=== PATIENT | female | born 2000 | race Caucasian/White ===

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

== ENCOUNTER 2022-01-08 01:26 | Observation (INO) ==
[2022-01-08] MEDS ORDERED: ONDANSETRON INJ 2 MG/ML 2 ML VIAL IV STA (01:53)
[2022-01-08] MEDS ORDERED: MoRPHine SULFATE 2 MG/ML CARP IV STA ×2 (01:53→03:35)
[2022-01-08] MEDS ORDERED: SODIUM CHLORIDE 0.9% 500 ML IV ONE (01:53)
--- NOTE | 2022-01-08 01:59 | Emergency Department Note ---
Impression & Plan Left flank pain Admit to the [facility] ED Provider Note NAME: ABELINO TOWNSEND AGE: 21 SEX: F ARRIVES VIA: Walk-In INFORMANT: Patient ED PROVIDER(S): Carolin Marie DO CHIEF COMPLAINT: Left flank pain PLAN: Disposition: Admit to the [facility] Condition: Stable MEDICAL DECISION MAKING: This is a 21-year-old female patient who is 33 weeks who presents to the emergency department with sudden onset of left flank pain at midnight. The patient was noted to have hematuria on urinalysis and went for an ultrasound of the left renal collecting system to rule out an obstructive uropathy. This was not confirmed on ultrasound but her presentation seemed consistent with ureteral colic. She required multiple doses of IV morphine for pain management. I discussed the case with TELEGRAPHIC TYPEWRITER INSTALLER and they recommended admission to the hospital by internal medicine. Dr. Godoy suggested daily NST by TELEGRAPHIC TYPEWRITER INSTALLER. The patient's pain was constant in her left flank and therefore I did not believe that she was having contractions. She had absolutely no anterior abdominal pain. Triage Nursing notes reviewed and agree with them. Additional history obtained from her significant other Vital Signs: reviewed and remarkable for tachycardia Differential diagnosis: Contractions; ureteral colic; obstructive uropathy; pyelonephritis ER treatment provided: Normal saline; IV morphine X2 IV Zofran Diagnostics interpreted by me: Cardiac Monitoring: Normal sinus rhythm at 115 Laboratory studies: See below Imaging studies: As per stat rad Ultrasound renal: Mild right renal hydronephrosis which may be due to maternal hydronephrosis of . No evidence of calculus within the left kidney. Partially visualized fetus. Decompressed urinary bladder Mild splenomegaly with the spleen measuring 13.5 cm. Consultations: Dr. Godoy-TELEGRAPHIC TYPEWRITER INSTALLER HPI: arrives for evaluation of left flank pain. Patient is 33 weeks and describes developing severe left flank pain and nausea around midnight tonight. She tried taking Tylenol with no significant relief. She has had significant vomiting upon arrival here in the emergency department. The patient denies ever having symptoms like this in the past although yesterday she did have some pain in her left side for which she took Tylenol. That pain lasted for a couple of hours. Denies any urinary symptoms or any previous history of kidney stones. ROS: See above HPI for pertinent positives & negatives. A total of 10 systems reviewed and were otherwise negative. PAST MEDICAL HISTORY: at 33 weeks PAST SURGICAL HISTORY:See Below FAMILY HISTORY:See Below SOCIAL HISTORY:See Below HOME MEDICATIONS:See Below ALLERGIES:See Below VITALS:See Below PHYSICAL EXAMINATION: HEENT: Head - normocephalic and atraumatic Pupils are equal, round, and reactive to light. Extraocular eye muscles are intact, and sclera are anicteric. Nose - moist nasal mucosa without discharge. Mouth - moist buccal mucosa. Oropharynx is nonerythematous and there is no tonsillar exudate or edema noted. Neck: Supple; no cervical lymphadenopathy. Heart: Tachycardic rate and rhythm. There is a normal S1 and S2 with no murmurs, clicks, or gallops appreciated. Lungs: Clear to auscultation bilaterally with no wheezes, rales, or rhonchi. Abdomen: Soft, gravid, nontender, no CVA tenderness, with good bowel sounds. There are no palpable pulsatile masses or hepatosplenomegaly. There is no guarding, rigidity, or rebound noted. Extremities: No evidence of cyanosis, clubbing, or edema. There are easily palpable peripheral pulses. Skin: warm and dry with good turgor and no rashes. ED COURSE: Times/Reassessments: 0145: The patient was evaluated in room B 11. A complete history and physical was performed. An IV lock was initiated and labs were drawn as above. A urine specimen was obtained which showed hematuria. The patient was given 2 mg of IV morphine and 4 mg of IV Zofran and a bolus of IV normal saline solution. The patient went for ultrasound of the left collecting system as described above. I discussed the case with Dr. Godoy from TELEGRAPHIC TYPEWRITER INSTALLER and he recommended admission to the hospital with internal medicine and consult with urology and TELEGRAPHIC TYPEWRITER INSTALLER. I discussed the case with the [facility] hospitalist group and relayed his suggestions. Patient had recurrence of her pain and received additional dose of IV morphine. Carolin Marie DO Past Med/Surg History Medical History Acute otitis externa Acute sinusitis Cough Stye Varicella vaccination Viral URI Surgical History H/O tooth extraction and implant History of tonsillectomy Family History Grandmother (Maternal) Ovarian cancer Cervical cancer Denies family history of Prostate cancer Breast cancer Colorectal cancer Social History Smoking Status: Never smoker Second Hand Exposure: No; Hx Alcohol Use: No Hx Substance Use: No Preferred Language: [place] Visual Impairment: No Limitations Hearing Ability: Normal Atmospheric Technician Required: No Beliefs That Will Affect Care: None marital status: Single marital status details: RODOLFO Ramos (33) [phone] Current Living Situation: Other Current Living Situation Comment: Lives with Boyfriend current occupational status: employed 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 Feels Safe at Home: Yes Assistive Devices: None Allergies Allergies Allergy/AdvReac Type Severity Reaction Status Date / Time No Known Allergies Allergy Verified 01/08/22 01:38 Home Meds Home Medications Medication Instructions Recorded Confirmed 1 tab PO DAILY 01/08/22 01/08/22 Previous Rx's Medication Instructions Recorded cephalexin 500 mg capsule 500 mg PO Q6H 6 Days #24 cap 01/08/22 Results & Data (ED) Vital Signs Vital Signs - 24 hr 01/08/22 01:27 01/08/22 01:52 01/08/22 02:58 Temperature 36.6 C Temperature Source Temporal Artery Scan Pulse Rate 200 H Pulse Rate [Right Finger] 115 H 78 Pulse Rhythm Regular Pulse Rhythm [Right Finger] Regular Pulse Strength Strong Pulse Strength [Right Finger] Normal Normal Respiratory Rate 18 18 18 Respiratory Effort / Characteristics Non-Labored Spontaneous Non-Labored Spontaneous Non-Labored Spontaneous Respiratory Depth Normal Normal Normal Respiratory Pattern Regular Blood Pressure 111/76 Blood Pressure [Right Arm] 102/74 Blood Pressure Mean 87 Blood Pressure Mean [Right Arm] 83 Blood Pressure Position Sitting Blood Pressure Position [Right Arm] Lying Pulse Oximetry 98 98 Oxygen Delivery Method Room Air Room Air Sepsis Recent Fever Within 48 Hours No Sepsis New/Unexplained Change in Mental Status No Sepsis Action Taken by Nursing No Action Required 01/08/22 03:28 Temperature Temperature Source Pulse Rate 96 H Pulse Rate [Right Finger] Pulse Rhythm Regular Pulse Rhythm [Right Finger] Pulse Strength Pulse Strength [Right Finger] Respiratory Rate Respiratory Effort / Characteristics Respiratory Depth Respiratory Pattern Blood Pressure Blood Pressure [Right Arm] Blood Pressure Mean Blood Pressure Mean [Right Arm] Blood Pressure Position Blood Pressure Position [Right Arm] Pulse Oximetry 96 Oxygen Delivery Method Room Air Sepsis Recent Fever Within 48 Hours Sepsis New/Unexplained Change in Mental Status Sepsis Action Taken by Nursing Laboratory Data Result diagrams: 01/08/22 01:45 01/08/22 01:45 Lab Results 01/08/22 01/08/22 01/08/22 Range/Units 01:45 01:45 01:45 WBC 8.78 (4.8-10.8) K/uL RBC 3.33 L (4.2-5.4) M/uL Hgb 9.9 L (12.0-16.0) g/dL Hct 29.5 L (37-47) % MCV 88.6 (80-100) fL MCH 29.7 (25-34) pg MCHC 33.6 (32-36) g/dL RDW Std Deviation 44.7 (36.4-46.3) fL RDW Coeff of Rodger 13.8 (11.5-14.5) % Plt Count 157 (130-400) K/uL MPV 9.7 (7.4-10.4) fL Immature Gran % (Auto) 0.3 % Neut % (Auto) 67.1 % Lymph % (Auto) 24.7 % [place] % (Auto) 6.8 % Eos % (Auto) 1.1 % Baso % (Auto) 0.0 % Neut # (Auto) 5.88 (1.4-6.5) K/uL Lymph # (Auto) 2.17 (1.2-3.4) K/uL [place] # (Auto) 0.60 H (0.11-0.59) K/uL Eos # (Auto) 0.10 (0-0.5) K/uL Baso # (Auto) 0.00 (0-0.2) K/uL Immature Gran # (Auto) 0.03 H (0.00-0.02) K/uL Absolute Nucleated RBC 0.00 (0-0) K/uL Nucleated RBC % (auto) 0.0 % RBC Morphology Unremarkable Polychromasia 1+ Sodium 138 (136-145) mmol/L Potassium 3.4 L (3.5-5.1) mmol/L Chloride 105 (98-107) mmol/L Carbon Dioxide 24 (21-32) mmol/L Anion Gap 9 (3-11) BUN 9 (6-23) mg/dl Creatinine 0.63 (0.6-1.2) mg/dl Est Cr Clr Drug Dosing 152.5 ml/min Est GFR ( Amer) 148.6 ml/min Est GFR (Non-Af Amer) 128.2 ml/min BUN/Creatinine Ratio 14.3 (10-20) Glucose 97 (70-99(Fasting)) mg/dl Calcium 8.9 (8.5-10.1) mg/dl Magnesium 1.7 (1.7-2.4) mg/dl Total Bilirubin 0.5 (0.2-1.0) mg/dl AST 15 (13-39) U/L ALT 10 (7-52) U/L Alkaline Phosphatase 86 (34-104) U/L Total Protein 6.6 (6.0-8.3) gm/dl Albumin 3.6 (3.4-5.0) gm/dl Globulin 3.0 (2.5-4.0) gm/dl Albumin/Globulin Ratio 1.2 (0.9-2) Urine Color Urine Appearance (Clear) Urine pH (4.5-7.5) Ur Specific [place] (1.000-1.030) Urine Protein (Negative) Urine Glucose (UA) (Negative) Urine Ketones (Negative) Urine Blood (Negative) Urine Nitrite (Negative) Urine Bilirubin (Negative) Urine Urobilinogen (Negative) Ur Leukocyte Esterase (Negative) Urine WBC (Auto) (0-5) /hpf Urine RBC (Auto) (0-4) /hpf U Hyaline Cast (Auto) (0-5) /lpf U Epithel Cells (Auto) (0-5) /lpf Urine Bacteria (Auto) (Negative) Monoscreen (Negative) SARS-CoV-2, RNA, NAAT (NEGATIVE) 01/08/22 01/08/22 01/08/22 Range/Units 01:45 02:00 03:45 WBC (4.8-10.8) K/uL RBC (4.2-5.4) M/uL Hgb (12.0-16.0) g/dL Hct (37-47) % MCV (80-100) fL MCH (25-34) pg MCHC (32-36) g/dL RDW Std Deviation (36.4-46.3) fL RDW Coeff of Rodger (11.5-14.5) % Plt Count (130-400) K/uL MPV (7.4-10.4) fL Immature Gran % (Auto) % Neut % (Auto) % Lymph % (Auto) % [place] % (Auto) % Eos % (Auto) % Baso % (Auto) % Neut # (Auto) (1.4-6.5) K/uL Lymph # (Auto) (1.2-3.4) K/uL [place] # (Auto) (0.11-0.59) K/uL Eos # (Auto) (0-0.5) K/uL Baso # (Auto) (0-0.2) K/uL Immature Gran # (Auto) (0.00-0.02) K/uL Absolute Nucleated RBC (0-0) K/uL Nucleated RBC % (auto) % RBC Morphology Polychromasia Sodium (136-145) mmol/L Potassium (3.5-5.1) mmol/L Chloride (98-107) mmol/L Carbon Dioxide (21-32) mmol/L Anion Gap (3-11) BUN (6-23) mg/dl Creatinine (0.6-1.2) mg/dl Est Cr Clr Drug Dosing ml/min Est GFR ( Amer) ml/min Est GFR (Non-Af Amer) ml/min BUN/Creatinine Ratio (10-20) Glucose (70-99(Fasting)) mg/dl Calcium (8.5-10.1) mg/dl Magnesium (1.7-2.4) mg/dl Total Bilirubin (0.2-1.0) mg/dl AST (13-39) U/L ALT (7-52) U/L Alkaline Phosphatase (34-104) U/L Total Protein (6.0-8.3) gm/dl Albumin (3.4-5.0) gm/dl Globulin (2.5-4.0) gm/dl Albumin/Globulin Ratio (0.9-2) Urine Color [place] Urine Appearance Cloudy A (Clear) Urine pH 5.5 (4.5-7.5) Ur Specific [place] 1.034 H (1.000-1.030) Urine Protein 1+ H (Negative) Urine Glucose (UA) Negative (Negative) Urine Ketones 1+ H (Negative) Urine Blood 3+ H (Negative) Urine Nitrite Negative (Negative) Urine Bilirubin Negative (Negative) Urine Urobilinogen Negative (Negative) Ur Leukocyte Esterase Trace H (Negative) Urine WBC (Auto) 10-30 H (0-5) /hpf Urine RBC (Auto) >30 H (0-4) /hpf U Hyaline Cast (Auto) 5-10 H (0-5) /lpf U Epithel Cells (Auto) >30 H (0-5) /lpf Urine Bacteria (Auto) 1+ H (Negative) Monoscreen Negative (Negative) SARS-CoV-2, RNA, NAAT NEGATIVE (NEGATIVE) Administered Medications Discontinued Medications Sodium Chloride (Nss) 500 mls @ 999 mls/hr IV .Q31M ONE Stop: 01/08/22 02:23 Last Infusion: 01/08/22 03:32 Dose: 0 mls/hr Documented by: [id number] Admin: 01/08/22 02:13 Dose: 999 mls/hr Documented by: [id number] Ceftriaxone Sodium 2,000 mg/ (Dextrose) 70 mls @ 100 mls/hr IV Q24H SCOTT; Protocol Stop: 01/18/22 06:59 Last Infusion: 01/08/22 08:17 Dose: 0 mls/hr Documented by: [id number] Admin: 01/08/22 07:35 Dose: 100 mls/hr Documented by: [id number] Sodium Chloride (Nss 1000ml) 1,000 mls @ 100 mls/hr IV .Q10H SCOTT Stop: 02/07/22 05:48 Last Admin: 01/08/22 07:08 Dose: 100 mls/hr Documented by: [id number] Morphine Sulfate (Morphine Sulfate 2 Mg/Ml Carp) 2 mg IV NOW STA Stop: 01/08/22 01:54 Last Admin: 01/08/22 02:10 Dose: 2 mg Documented by: [id number] Morphine Sulfate (Morphine Sulfate 2 Mg/Ml Carp) 2 mg IV NOW STA Stop: 01/08/22 03:36 Last Admin: 01/08/22 03:44 Dose: 2 mg Documented by: [id number] Ondansetron HCl (Ondansetron Inj 2 Mg/Ml 2 Ml Vial) 4 mg IV NOW STA Stop: 01/08/22 01:54 Last Admin: 01/08/22 02:09 Dose: 4 mg Documented by: [id number] Potassium Chloride (Potassium Chloride Crtab 20 Meq Tabcr) 40 meq PO NOW STA Stop: 01/08/22 08:40 Last Admin: 01/08/22 08:41 Dose: 40 meq Documented by: [id number] Prenat Multivit/[place]/Iron/Folic Ac ( Vitamin 1 Tab) 1 tab PO DAILY SCOTT Stop: 02/07/22 08:59 Last Admin: 01/08/22 08:38 Dose: 1 tab Documented by: [id number] Discharge Plan Visit Data Chief Complaint: Back Injury/Pain Stated Complaint: BACK PAIN,NAUSEA ED Provider: Carolin Marie Discharge Problem: Left flank pain Patient Disposition: Admitted As Inpatient Discharge Instructions Interventions: ED Discharge Assessment Last Done: 01/08/22 05:28
[2022-01-08 02:10] LABS: Hematocrit (blood only) 29.5 % (37-47); Hemoglobin 9.9 g/dL (12.0-16.0); Mean Corpuscular Hemoglobin 29.7 pg (25-34); Mean Corpuscular Hgb Conc 33.6 g/dL (32-36); Mean Corpuscular Volume 88.6 fL (80-100); Mean Platelet Volume 9.7 fL (7.4-10.4); Platelet Count 157 K/uL (130-400); RDW Coefficient of Variation 13.8 % (11.5-14.5); RDW Standard Deviation 44.7 fL (36.4-46.3); Red Blood Count 3.33 M/uL (4.2-5.4); White Blood Count 8.78 K/uL (4.8-10.8)
[2022-01-08 02:12] LABS: Appearance Urine Cloudy (Clear); Bacteria Urine Automated 1+ (Negative); Bilirubin Urine Negative (Negative); Blood Urine 3+ (Negative); Color Urine Orange; Epithelial Cell Urine Auto >30 /lpf (0-5); Glucose Urine UA Negative (Negative); Ketones Urine 1+ (Negative); Leukocyte Esterase Urine Trace (Negative); Nitrite Urine Negative (Negative); Protein Urine 1+ (Negative); RBC Urine Automated >30 /hpf (0-4); Specific Gravity Urine 1.034 (1.000-1.030); Urobilinogen Urine Negative (Negative); pH Urine 5.5 (4.5-7.5)
[2022-01-08 02:20] LABS: Albumin Globulin Ratio 1.2 (0.9-2); Albumin Level 3.6 gm/dl (3.4-5.0); BUN Creatinine Ratio 14.3 (10-20); Bilirubin,Total 0.5 mg/dl (0.2-1.0); Calcium 8.9 mg/dl (8.5-10.1); Creatinine Clr Calc Pharmacy 152.5 ml/min; Est GFR (African American) 148.6 ml/min; Est GFR (Non-African American) 128.2 ml/min; Potassium 3.4 mmol/L (3.5-5.1); Total Protein 6.6 gm/dl (6.0-8.3)
[2022-01-08 02:33] LABS: Eosinophils % (auto) 1.1 %; Immature Granulocytes # (auto) 0.03 K/uL (0.00-0.02); Immature Granulocytes % (auto) 0.3 %; Lymphocytes # (auto) 2.17 K/uL (1.2-3.4); Lymphocytes % (auto) 24.7 %; Monocytes % (auto) 6.8 %; Neutrophils # (auto) 5.88 K/uL (1.4-6.5); Neutrophils % (auto) 67.1 %; Polychromasia 1+
--- NOTE | 2022-01-08 04:42 | History & Physical Report ---
Date of Service January 08, 2022 Assessment & Plan (1) Left flank pain: (2) Splenomegaly: Plan: Paty Wilks is a 21-year-old at 33 weeks gestation who came to [facility] due to severe left flank pain for 4 hours. Left flank pain - Unclear etiology -- DDx including kidney stone as this cannot be fully ruled out despite negative US, UTI/pyelonephritis, secondary to splenomegaly, positioning - Admit to med tele - Will check monospot due to splenomegaly on US - Will treat empirically for UTI w/ ceftriaxone - PRN analgesia with IV Tylenol or morphine if severe pain - IVF w/ NSS @ 100cc/h - Consult Urology - Consult OB -- provider aware and recommending admission to medicine, does not feel monitoring necessary at this time; planning to get daily NSTs - CBC & CMP in AM Splenomegaly - Mild splenomegaly on Renal US with spleen measuring 13.5 cm - Unclear etiology - Check monospot DVT ppx: SCDs, chemoppx contraindicated Diet: NPO, NSS @ 100 cc/h Dispo: Med tele CODE STATUS: Full History of Present Illness Primary Care Provider: NO PCP Paty Wilks is a 21-year-old at 33 weeks gestation who came to [facility] due to severe left flank pain for 4 hours. She had left flank/low back pain night before last and treated with Tylenol, which resolved it. The tax director yesterday had the same issue but was able to resolve it as well. However, around midnight, she developed severe sudden pain in her left flank. This time was worse than previous so decided to come in. She denies h/o kidney stones or any other abdominal pathology. She currently denies any urinary symptoms including dysuria, frequency, urgency. No fever, chills, n/v, CP, palp, SOB, cough, weakness, numbness, swelling, abd pain, KOHLER, dizziness, rashes. Denies vaginal bleeding, fluid loss. Fetus has remained active. In the ED patient received morphine 2mg IV x2, NSS 1L fluid bolus, zogfran 4mg IV x1. She had Renal US showing mild right renal hydronephrosis, no evidence of calculus within left kidney, mild splenomegaly with spleen measuring 13.5cm per [facility]. Lab work only notable for anemia of 9.9, which seems stable from last check, and mild hypokalemia of 3.4. Urinalysis showed cloudy, orange urine with 1+ protein, 1+ ketones, 3+ blood, trace leuk esterase, 10-30 WBC, >30 RBC, 5-10 hyaline casts, >30 epithelial cells, 1+ bacteria. Patient's pain resolved at this time after above meds. Allergies Allergy/AdvReac Type Severity Reaction Status Date / Time No Known Allergies Allergy Verified 01/08/22 01:38 Home Medications Medication Instructions Recorded Confirmed Type 1 tab PO DAILY 01/08/22 01/08/22 History cephalexin 500 mg capsule 500 mg PO Q6H 6 Days #24 cap 01/08/22 Rx Past Med/Surg History Medical History Acute otitis externa Acute sinusitis Cough Stye Varicella vaccination Viral URI Surgical History H/O tooth extraction and implant History of tonsillectomy Family History Grandmother (Maternal) Ovarian cancer Cervical cancer Denies family history of Prostate cancer Breast cancer Colorectal cancer Social History Smoking Status: Never smoker Second Hand Exposure: No; Hx Alcohol Use: No Hx Substance Use: No Preferred Language: Citizen Of [place] Visual Impairment: No Limitations Hearing Ability: Normal Commercial Loan Manager Required: No Beliefs That Will Affect Care: None marital status: Single marital status details: RODOLFO Ramos (33) [phone] Current Living Situation: Other Current Living Situation Comment: Lives with Boyfriend current occupational status: employed 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 NAD. HEENT: PERRL, EOMI. Moist mucous membranes. NECK: No JVD. No lymphadenopathy. CHEST/LUNGS: CTAB A/P. No crackles, wheezes, rales, rhonchi. HEART: RRR. No m/g/r. No carotid bruits. ABDOMEN: NT/ND, soft. BS+ x4. Gravid. No CVA tenderness. EXTREMITIES: No cyanosis, no clubbing, no edema SKIN: Warm and dry. No rashes or lesions. PSYCHIATRIC: Euthymic affect, no SI, no pressured speech, no hallucinations NEUROLOGIC: No FND. CN II-XII grossly intact. Results & Data Results & Data ([facility]) Vital Signs (Past 12 Hours) Vital Signs Temp Pulse Pulse Resp BP BP Pulse Ox 01/08/22 04:05 101 H 20 112/71 97 01/08/22 03:28 96 H 96 01/08/22 02:58 78 18 102/74 01/08/22 01:52 115 H 18 98 01/08/22 01:27 36.6 C 200 H 18 111/76 98 Code Status & VTE Plan VTE Prophylaxis Plan VTE Prophylaxis will be ordered: Yes Supervising Physician Co-Signing Physician Notes Attending addendum: I have physically seen this patient, have supervised the medical residents activities, and agree with the H&P unless as otherwise noted. Assessment and Plan: Intractable left flank pain with hematuria/hydronephrosis of right kidney/splenomegaly- No definite signs of kidney stones on imaging Order Monospot IV fluids, NSS at 100 mils per hour Premedications as noted Follow urine culture and sensitivity Empiric ceftriaxone 1 g IV daily Consult urology Consult OB discussed monitoring as noted Mild splenomegaly- Noted on CT Patient does report left flank pain Check Monospot Patient is COVID-19 negative Remaining orders and notations as noted Resident Activity Tracking Resident Involvement: Resident Care Provided Care Provided: [facility]
[2022-01-08] MEDS ORDERED: POTASSIUM CHLORIDE CRTAB 20 MEQ TABCR PO STA ×2 (05:24→08:39)
[2022-01-08] MEDS ORDERED: SODIUM CHLORIDE 0.9% 1000ML 1,000 ML IV SCH (05:49)
[2022-01-08] MEDS ORDERED: MoRPHine SULFATE 2 MG/ML CARP IV PRN (05:49)
[2022-01-08] MEDS ORDERED: ACETAMINOPHEN 1000 MG/100 ML IV IV PRN (05:49)
--- NOTE | 2022-01-08 06:26 | Ultrasound Report ---
RENAL ULTRASOUND CLINICAL HISTORY: Left flank pain. Evaluate left side for stone; 33wks preg COMPARISON STUDY: None. TECHNIQUE: Sonography of the kidneys and the urinary bladder was performed. FINDINGS: Right kidney measures 11.8 x 4.8 x 4.7 cm and the left kidney measures 13.7 x 6.1 x 5.3 cm. There is mild right collecting system dilatation. There is no left hydronephrosis. No urinary calcul i are identified by sonography. Please note that a dedicated ultrasound was not performed. Sple en is mildly enlarged. Bladder suboptimally assessed. IMPRESSION: 1. No left hydronephrosis. Mild right collecting system dilatation. 2. Unremarkable sonographic appearance of the left kidney. ACT 112: Negative or not required by law. Electronically signed by: Daniel Singleton M.D. 01/08/2022 6:24 AM
[2022-01-08] MEDS ORDERED: cefTRIAXone SODIUM 2,000 MG in DEXTROSE 5% 50 ML IV SCH (07:00)
[2022-01-08] MEDS ORDERED: PRENATAL VITAMIN 1 TAB PO SCH (09:00)
--- NOTE | 2022-01-08 09:22 | Urology Consultation ---
Date of Consultation January 08, 2022 Assessment & Plan (1) Left flank pain: No urological findings or interventions indicated Right-sided hydrois consistent with expectations for this stage of She has no left-sided findings to suggest kidney stone She is currently asymptomatic There is no indication for further imaging or intervention from our standpoint We will sign offno urologic follow-up needed History of Present Illness Attending Physician: Ronald Mendez DO History of Present Illness 21-year-old female who is 33 weeks presented to the emergency room overnight secondary to severe left flank pain No prior episodes of a similar nature and this has now resolved She had an ultrasound on arrival shows no hydronephrosis but she has some splenomegalyno stone seen She has mild right hydronephrosis which is consistent with expectations for her current 33-week gestation She has no history of kidney stones and she has not experienced any hematuria or dysuria She has UA that has white blood cells and some red blood cellsall consistent with a stage of and her prior UAs over the past several months Borderline tachycardic but afebrile with unremarkable lab evaluations Allergies Allergy/AdvReac Type Severity Reaction Status Date / Time No Known Allergies Allergy Verified 01/08/22 01:38 Home Medications Medication Instructions Recorded Confirmed Type 1 tab PO DAILY 01/08/22 01/08/22 History Patient History Medical History Acute otitis externa Acute sinusitis Cough Stye Varicella vaccination Viral URI Surgical History H/O tooth extraction and implant History of tonsillectomy Family History Grandmother (Maternal) Ovarian cancer Cervical cancer Denies family history of Prostate cancer Breast cancer Colorectal cancer Social History Smoking Status: Never smoker Second Hand Exposure: No; Hx Alcohol Use: No Hx Substance Use: No Preferred Language: Tajik Visual Impairment: No Limitations Hearing Ability: Normal Curriculum Counselor Required: No Beliefs That Will Affect Care: None marital status: Single marital status details: RODOLFO Ramos (33) [phone] Current Living Situation: Other Current Living Situation Comment: Lives with Boyfriend current occupational status: employed 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[employer] Other Information That Helps Us Care for You: No Feels Safe at Home: Yes Safety Concerns: Feels Safe At This Time Assistive Devices: None Review of Systems Constitutional: no fever, no chills and no fatigue Eyes: no worsening vision Ear, Nose, Mouth, Throat: no facial pain and no pain with swallowing Respiratory: no cough and no dyspnea Cardiovascular: no chest pain and no palpitations Gastrointestinal: no abdominal pain, no nausea and no vomiting Genitourinary: no dysuria, no difficulty urinating, no urinary frequency and no hematuria Musculoskeletal: no back pain Integumentary: no rash and no urticaria Neurologic: no gait abnormality and no unsteadiness Psychiatric: no behavioral changes and no depression Endocrine: no fatigue Physical Exam Physical Exam: Gravid uterushealthy appearing Constitutional: well developed and well nourished Neck: neck nontender Respiratory: normal respiratory effort; no respiratory distress and does not use accessory muscles Cardiovascular: Rate/Rhythm: regular rate Vessels: radial pulses present Extremities: no edema Gastrointestinal (Abdomen): Inspection/Auscultation: abdomen normal to inspection Percussion/Palpation: abdomen soft; abdomen nontender and no g uarding Musculoskeletal: Head/Neck/Chest: normocephalic and head atraumatic Extremities: extremities normal to inspection Skin: no rashes and no lesions Trauma: no evidence of skin trauma Neurologic: awake; not obtunded Speech / Cognition: normal speech Motor/Sensory: no tremor Psychiatric: Orientation: alert and oriented x 3 Lymphatic: no lymphadenopathy Results & Data ([facility]) Vital Signs (Past 12 Hours) Vital Signs Temp Pulse Pulse Resp BP BP Pulse Ox 01/08/22 06:20 36.9 C 99 H 18 106/72 95 01/08/22 04:05 101 H 20 112/71 97 01/08/22 03:28 96 H 96 01/08/22 02:58 78 18 102/74 01/08/22 01:52 115 H 18 98 01/08/22 01:27 36.6 C 200 H 18 111/76 98 PG Care Time/CCT Total # of Minutes Spent Total Time Spent with Patient: Total time spent is greater than 50% in coordination of care (as documented) at patient's floor/unit and/or counseling patient: Coding Level of Care Code 10573 Inpt Consult Level 4 Diagnoses Left flank pain R10.9
--- NOTE | 2022-01-08 09:53 | OB/GYN Consultation ---
Date of Consultation January 08, 2022 Assessment & Plan (1) Left flank pain: Paty is a 21-year-old G1 admitted for left flank pain likely secondary to kidney stone. Patient symptoms have improved markedly and is denying any significant pain this morning. Patient is denying any obstetric concerns. Will plan for once daily NST and contraction monitoring while admitted. Defer care otherwise to medicine team. (2) Encounter for supervision of normal intrauterine in primigravida, antepartum: History of Present Illness Attending Physician: Ronald Mednez DO History of Present Illness Paty is a 21-year-old at 33 weeks 1 day gestational age presents to the emergency department last night for flank pain. Flank pain thought to be due to kidney stones versus possible ascending urinary tract infection versus splenomegaly. Patient currently admitted to medicine service. Patient was seen this morning was reporting significant symptomatic improvement. Denies any vaginal bleeding, leakage of fluid or contractions. Reporting good movement. Patient's has been otherwise uncomplicated today. Allergies Allergy/AdvReac Type Severity Reaction Status Date / Time No Known Allergies Allergy Verified 01/08/22 01:38 Home Medications Medication Instructions Recorded Confirmed Type 1 tab PO DAILY 01/08/22 01/08/22 History Patient History Medical History Acute otitis externa Acute sinusitis Cough Stye Varicella vaccination Viral URI Surgical History H/O tooth extraction and implant History of tonsillectomy Family History Grandmother (Maternal) Ovarian cancer Cervical cancer Denies family history of Prostate cancer Breast cancer Colorectal cancer Social History Smoking Status: Never smoker Second Hand Exposure: No; Hx Alcohol Use: No Hx Substance Use: No Preferred Language: Nigerian Visual Impairment: No Limitations Hearing Ability: Normal Patient Coordinator Front Desk Required: No Beliefs That Will Affect Care: None marital status: Single marital status details: RODOLFO Ramos (33) [phone] Current Living Situation: Other Current Living Situation Comment: Lives with Boyfriend current occupational status: employed current occupation: [employer] Other Information That Helps Us Care for You: No Feels Safe at Home: Yes Safety Concerns: Feels Safe At This Time Assistive Devices: None Physical Exam Gastrointestinal (Abdomen): Inspection/Auscultation: abdomen not distended Percussion/Palpation: abdomen soft; abdomen nontender, no guarding and abdomen not rigid Genitourinary: NST pending Results & Data ([facility]) Vital Signs (Past 12 Hours) Vital Signs Temp Pulse Pulse Resp BP BP Pulse Ox 01/08/22 06:20 36.9 C 99 H 18 106/72 95 01/08/22 04:05 101 H 20 112/71 97 01/08/22 03:28 96 H 96 01/08/22 02:58 78 18 102/74 01/08/22 01:52 115 H 18 98 01/08/22 01:27 36.6 C 200 H 18 111/76 98 PG Care Time/CCT Total # of Minutes Spent Total Time Spent with Patient: Total time spent is greater than 50% in coordination of care (as documented) at patient's floor/unit and/or counseling patient: Coding Level of Care Code 85695 Initial Inpt Care Lvl 2 Diagnoses Left flank pain R10.9 Encounter for supervision of normal intrauterine in primigravida, antepartum Z34.00 CPT Codes Misx Procedure Codes - 45807 NST: 36056 NST ([id number]) CORD MAKER Miscellaneous Codes Misx Procedure Codes 35886 NST
[2022-01-08 11:02] LABS: RBC Morphology Unremarkable
--- NOTE | 2022-01-08 12:06 | Discharge Summary ---
Date of Service January 08, 2022 Admission HPI Per Admitting Provider Paty Wilks is a 21-year-old at 33 weeks gestation who came to [facility] due to severe left flank pain for 4 hours. She had left flank/low back pain night before last and treated with Tylenol, which resolved it. The mat tester yesterday had the same issue but was able to resolve it as well. However, around midnight, she developed severe sudden pain in her left flank. This time was worse than previous so decided to come in. She denies h/o kidney stones or any other abdominal pathology. She currently denies any urinary symptoms including dysuria, frequency, urgency. No fever, chills, n/v, CP, palp, SOB, cough, weakness, numbness, swelling, abd pain, KOHLER, dizziness, rashes. Denies vaginal bleeding, fluid loss. Fetus has remained active. In the ED patient received morphine 2mg IV x2, NSS 1L fluid bolus, zogfran 4mg IV x1. She had Renal US showing mild right renal hydronephrosis, no evidence of calculus within left kidney, mild splenomegaly with spleen measuring 13.5cm per [employer]. Lab work only notable for anemia of 9.9, which seems stable from last check, and mild hypokalemia of 3.4. Urinalysis showed cloudy, orange urine with 1+ protein, 1+ ketones, 3+ blood, trace leuk esterase, 10-30 WBC, >30 RBC, 5-10 hyaline casts, >30 epithelial cells, 1+ bacteria. Patient's pain resolved at this time after above meds. Admission Exam Per Admitting Provider GENERAL: A&Ox3. NAD. HEENT: PERRL, EOMI. Moist mucous membranes. NECK: No JVD. No lymphadenopathy. CHEST/LUNGS: CTAB A/P. No crackles, wheezes, rales, rhonchi. HEART: RRR. No m/g/r. No carotid bruits. ABDOMEN: NT/ND, soft. BS+ x4. Gravid. No CVA tenderness. EXTREMITIES: No cyanosis, no clubbing, no edema SKIN: Warm and dry. No rashes or lesions. PSYCHIATRIC: Euthymic affect, no SI, no pressured speech, no hallucinations NEUROLOGIC: No FND. CN II-XII grossly intact. Principal Diagnosis muscular spasm, asymptomatic bacteruria, hydronephrosis Discharge Exam Constitutional WD/WN, vitals as above Respiratory normal respiratory effort, lungs clear to auscultation Cardiovascular RRR, no murmur, no edema Gastrointestinal (Abdomen) normal bowel sounds, soft, nontender, no hepatosplenomegaly (gravid ) Musculoskeletal bilateral lumbar and low thoracic paraspinal hypertonicity and tenderness Skin no rashes, warm and dry Psychiatric A+Ox3, euthymic affect Discharge Data Allergies Allergy/AdvReac Type Severity Reaction Status Date / Time No Known Allergies Allergy Verified 01/08/22 01:38 Consultations 01/08/22 03:49 ED Decision to Admit Stat 01/08/22 04:26 Consult Obstetrics Routine 01/08/22 05:49 Consult Urology Routine Ordered Studies 01/08/22 02:01 US renal/blad retro comp Urgent Hospital Course (1) Left flank pain: (2) Splenomegaly: 21 yo F at 33 weeks GA admitted for evaluation of left flank pain and right hydronephrosis. Left flank pain: - DDx included kidney stone as this cannot be fully ruled out despite negative US, UTI/pyelonephritis, positioning/MSK etiology. - Will treat empirically for UTI w/ ceftriaxone -> Keflex 500mg q6h for total of 7 days of treatment given bacteruria in . - Urology consulted; hydronephrosis not unsurprising given , no interventions necessary. - Moist heat, OMT, Tylenol, foam roller as needed for muscular pain. Splenomegaly: - Mild splenomegaly on Renal US with spleen measuring 13.5 cm. - Possible "scanomegaly" given normal labwork otherwise and negative Monospot. - Consider repeat imaging at a later date. Dispo: home Total Time Total Time Spent Total Time Spent (In Minutes): <30 minutes Discharge Plan Discharge Items Patient Disposition: Home - Self-Care Reason For Visit: LEFT FLANK PAIN Discharge Diagnosis: hydronephrosis, back spasm Activity: Per Instructions section Non-emergency contact: Primary Care Provider and Septic Tank Service Technician Call non-emergency contact if: your symptoms worsen and you have a fever Follow-up/Referrals: PCP,NO [Primary Care Provider] - Diet: Regular Addtl Attending Provider Instructions: You were admitted to the hospital for evaluation of back pain. You were incidentally noted on kidney imaging to have a swollen right kidney, on the side opposite your pain. We had Urology see you, who suspects that the mild swelling is due to . We checked a urine specimen which had some signs of bacteria, so you were started on an antibiotic which we will continue orally when you go home. It is not impossible that you had a kidney stone that has passed, but there is not evidence of that on your kidney imaging. We suspect muscular spasm as the cause of your pain, and recommend Tylenol, moist heat, and gentle massage such as with a tennis ball or foam roller in the sore areas. Your spleen was also slightly swollen, but your blood cell counts were normal for and the cells looked normal under the microscope. Your Kerr test was negative. Your antibiotic is called cephalexin. Please take one pill every 6 hours for the next 6 days. This was sent to the [facility] in [place]. You should have a urine culture in the OB office at your next appointment after completing the antibiotic to see if the bacteria cleared from your urine. If you have recurrence of the pain, urinary symptoms such as burning or pain with urination, vomiting, or fevers, please come back for evaluation. Please follow up with OB and your primary care provider regarding your hospitalization. You can call the [facility] office at [phone] for an appointment to establish care with a provider. Pending Studies at Discharge: Yes (urine culture) Stand-Alone Forms: My [facility], Smoking Cessation Medications and DC Order Prescriptions: New cephalexin 500 mg capsule 500 mg PO Q6H 6 Days Qty: 24 RF: 0 Continued 1 tab PO DAILY RF: 0 Discharge Orders: Discharge Order (Routine); Ordered 01/08/22 Ordered By: Sonya Dior Admission Data Admit Date/Time: 01/08/22 05:42 Attending Provider: Ronald Mendez Admit Provider: Bunny Perez Primary Care Provider: PCP,NO Other Providers: Kenyon Godoy ; Danish Duarte ; Cristi Garcia Other Interventions: Discharge Summary Assessment (RN) Last Done: 01/08/22 12:16 Supervising Physician Co-Signing Physician Notes I personally examined the patient and verified all kruger points of history and exam, discussed case, and agree with decision making with Dr Dior. Feeling better overall. On directed questioning flank pain was really more of a low back SI joint region pain. 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 Mostly came to the hospital because she did not know where else to go for helppain was fairly intense, does not have PCP. Vitals noted, in general she is awake and alert pleasant no distress. HEENT normocephalic atraumatic mucous membranes moist. Breathing unlabored no accessory muscle use good effort. Musculoskeletal/osteopathic shows left sided pelvic musculature in the region of gluteus minimus to be high tone, tender, decreased range of motionassociated left posterior innominate confirming findingsmuscle energy done (post isometric relaxation as well as reciprocal inhibition)improved, patient tolerated well. Taught similar technique as home stretches Back painnot kidney related at all. Biomechanical. 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 Outlined stretches to do at home. We will try to establish with DO PCP given that there is a high likelihood she will need ongoing help as progresses. Somatic dysfunctionpelvisOMT as above Bacteriuriatreat with Keflex as above Stable for home Resident Activity Tracking Resident Involvement: Resident Care Provided Care Provided: Adult Hospital Medicine
--- NOTE | 2022-01-08 14:39 | Billing Data ---
Date of Service January 08, 2022 Coding Level of Care Code 63206 OBS Care - Discharge
--- NOTE | 2022-01-08 14:40 | Hospitalist Progress Note ---
Date of Service January 08, 2022 Assessment & Plan Admission and Anticipated Discharge Date Admission Date: January 08, 2022 Results & Data Results & Data ([facility]) Vital Signs (Past 12 Hours) Vital Signs Temp Pulse Pulse Resp BP BP Pulse Ox 01/08/22 12:16 98.2 F 92 H 16 113/67 106/72 94 01/08/22 10:52 98.2 F 92 H 16 113/67 94 01/08/22 06:20 98.4 F 99 H 18 106/72 95 01/08/22 04:05 101 H 20 112/71 97 01/08/22 03:28 96 H 96 01/08/22 02:58 78 18 102/74 PG Care Time/CCT Total # of Minutes Spent Total Time Spent with Patient: Total time spent is greater than 50% in coordination of care (as documented) at patient's floor/unit and/or counseling patient: Coding Level of Care Code None CPT Codes Musculoskeletal - Musculoskeletal: 57724 Osteo Sly Tr 1-2 Body regions ([id number])
--- NOTE | 2022-01-08 20:16 | Billing Data ---
Date of Service January 08, 2022 Coding Level of Care Code INT OBSERVATION CARE 70M LVL 3
== END 2022-01-08 13:50 | disposition home or self-care (01) | DRG 832 ==
LOC: ED 01:26 → 2N 05:28 → INTOOBSV 05:42 → 2N 05:42 → SUATTDRO 05:42
DX: O99.891 Other specified diseases and conditions complicating pregnancy; N13.30 Unspecified hydronephrosis; M53.3 Sacrococcygeal disorders, not elsewhere classified; M62.838 Other muscle spasm; O26.893 Other specified pregnancy related conditions, third trimester; R16.1 Splenomegaly, not elsewhere classified; Z3A.33 33 weeks gestation of pregnancy; R82.71 Bacteriuria

== ENCOUNTER 2022-01-10 13:43 | Observation (INO) ==
[2022-01-10] MEDS ORDERED: SODIUM CHLORIDE 0.9% 500 ML IV STA (13:52)
[2022-01-10 14:11] LABS: Hematocrit (blood only) 30.8 % (37-47); Hemoglobin 10.2 g/dL (12.0-16.0); Mean Corpuscular Hemoglobin 29.2 pg (25-34); Mean Corpuscular Hgb Conc 33.1 g/dL (32-36); Mean Corpuscular Volume 88.3 fL (80-100); Mean Platelet Volume 9.9 fL (7.4-10.4); Platelet Count 167 K/uL (130-400); RDW Coefficient of Variation 14.2 % (11.5-14.5); RDW Standard Deviation 45.5 fL (36.4-46.3); Red Blood Count 3.49 M/uL (4.2-5.4); White Blood Count 8.53 K/uL (4.8-10.8)
[2022-01-10 14:29] LABS: Appearance Urine Clear (Clear); Bacteria Urine Automated Negative (Negative); Bilirubin Urine Negative (Negative); Blood Urine 3+ (Negative); Color Urine Yellow; Epithelial Cell Urine Auto >30 /lpf (0-5); Glucose Urine UA Negative (Negative); Ketones Urine Negative (Negative); Leukocyte Esterase Urine Negative (Negative); Nitrite Urine Negative (Negative); Protein Urine Negative (Negative); RBC Urine Automated >30 /hpf (0-4); Specific Gravity Urine 1.014 (1.000-1.030); Urobilinogen Urine Negative (Negative)
[2022-01-10 14:40] LABS: Anion Gap 8 (3-11); BUN Creatinine Ratio 14.8 (10-20); Blood Urea Nitrogen 8 mg/dl (6-23); Calcium 8.7 mg/dl (8.5-10.1); Carbon Dioxide 21 mmol/L (21-32); Chloride 107 mmol/L (98-107); Creatinine Clr Calc Pharmacy 168.3 ml/min; Est GFR (African American) > 150.0 ml/min; Est GFR (Non-African American) 134.9 ml/min; Glucose 87 mg/dl (70-99(Fasting)); Potassium 3.9 mmol/L (3.5-5.1); Sodium 136 mmol/L (136-145)
[2022-01-10] MEDS ORDERED: ACETAMINOPHEN 1,000 MG/100 ML VIAL IV STA (14:46)
[2022-01-10] MEDS ORDERED: SODIUM CHLORIDE 0.9% 1000ML 1,000 ML IV ONE (16:29)
[2022-01-10] MEDS ORDERED: MoRPHine SULFATE 10 MG/ML CARP/VIAL IV STA ×2 (16:29→18:11)
[2022-01-10] MEDS ORDERED: ONDANSETRON INJ 2 MG/ML 2 ML VIAL IV STA (16:29)
--- NOTE | 2022-01-10 17:36 | Emergency Department Note ---
History of Present Illness General Chief complaint: Flank Pain Stated complaint: BACK PAIN, 33 WEEKS , TOLD TO COME BACK Source: patient Mode of arrival: ambulatory Limitations: no limitations History of Present Illness Maximum Pain Intensity: 10 This patient is a 21-year-old female who presents to the emergency department for evaluation of left-sided flank pain. Patient states that she is currently 33 weeks . She was seen here for the same symptoms a few days ago and was admitted due to a possible kidney stone versus UTI. She was feeling better when she went home, however states that her pain returned around 3 AM today. Pain radiates from the left flank into the left abdomen and she rates her discomfort a 10/10. She has tried Tylenol and ice without relief. She reports feeling normal movements. She denies vaginal bleeding. Home Medications Medication Instructions Recorded Confirmed Type cephalexin 500 mg capsule 500 mg PO QID 01/10/22 01/10/22 History vit no.95-ferrous 1 tab PO DAILY 01/10/22 01/10/22 History fumarate 28 mg-folic acid 800 mcg tablet () oxycodone-acetaminophen 5 mg-325 1 tab PO Q8H PRN #12 tab 01/12/22 Rx mg tablet (Percocet) Allergies Allergy/AdvReac Type Severity Reaction Status Date / Time No Known Allergies Allergy Verified 01/10/22 21:48 Past Med/Surg History Medical History Acute otitis externa Acute sinusitis Cough Stye Varicella vaccination Viral URI Surgical History H/O tooth extraction and implant History of tonsillectomy Family History Grandmother (Maternal) Ovarian cancer Cervical cancer Denies family history of Prostate cancer Breast cancer Colorectal cancer Social History Smoking Status: Never smoker Second Hand Exposure: No; Hx Alcohol Use: No Hx Substance Use: No Preferred Language: Swazi Communication Ability: Effective Visual Impairment: No Limitations Hearing Ability: Normal Tank Officer Required: No Beliefs That Will Affect Care: None marital status: Single marital status details: RODOLFO Ramos (33) [phone] Current Living Situation: Significant Other Current Living Situation Comment: Lives with Boyfriend current occupational status: employed 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 Feels Safe at Home: Yes Assistive Devices: None Review of Systems A total of 10 systems reviewed and were otherwise negative Physical Exam Vital Signs Vital Signs - 24 hr 01/10/22 13:47 01/10/22 16:00 01/10/22 18:08 Temperature 36.6 C Temperature Source Temporal Artery Scan Pulse Rate 114 H Pulse Rate [Right Finger] 98 H 96 H Pulse Rhythm [Right Finger] Regular Regular Pulse Strength [Right Finger] Normal Normal Respiratory Rate 18 19 17 Respiratory Effort / Characteristics Non-Labored Spontaneous Non-Labored Spontaneous Respiratory Depth Normal Normal Normal Respiratory Pattern Regular Blood Pressure 113/66 Blood Pressure [Right Arm] 119/74 Blood Pressure Mean 81 Blood Pressure Mean [Right Arm] 89 Blood Pressure Position [Right Arm] Lying Pulse Oximetry 100 98 97 Oxygen Delivery Method Room Air Room Air Room Air Sepsis Recent Fever Within 48 Hours No Sepsis New/Unexplained Change in Mental Status No Sepsis Action Taken by Nursing No Action Required 01/10/22 22:29 01/11/22 00:03 Temperature Temperature Source Pulse Rate Pulse Rate [Right Finger] 95 H 93 H Pulse Rhythm [Right Finger] Pulse Strength [Right Finger] Respiratory Rate 18 16 Respiratory Effort / Characteristics Non-Labored Respiratory Depth Normal Respiratory Pattern Blood Pressure Blood Pressure [Right Arm] 107/63 Blood Pressure Mean Blood Pressure Mean [Right Arm] 77 Blood Pressure Position [Right Arm] Pulse Oximetry 97 97 Oxygen Delivery Method Room Air Room Air Sepsis Recent Fever Within 48 Hours Sepsis New/Unexplained Change in Mental Status Sepsis Action Taken by Nursing VITALS: Vitals are noted on the nurse's note and reviewed by myself. GENERAL: This is a 21-year-old female, in no acute distress, well-developed well-nourished. SKIN: The skin was without rashes. EARS: External auditory canals clear, tympanic membranes pearly anderson without erythema or effusion bilaterally. EYES: Pupils equal round and reactive to light and accommodation. MOUTH: Mucous membranes moist. Tonsils are not enlarged. Pharynx without erythema or exudate. NECK: Supple without nuchal rigidity. No lymphadenopathy. HEART: Regular rate and rhythm without murmurs gallops or rubs. LUNGS: Clear to auscultation bilaterally without wheezes, rales or rhonchi. ABDOMEN: Gravid appearance of abdomen. There is left CVA tenderness. NEURO: Patient was alert and oriented to person place and time. Course Administered Medications Discontinued Medications Acetaminophen (Acetaminophen 325 Mg Tab) 650 mg PO Q8H PRN PRN Reason: pain or fever Stop: 02/10/22 00:58 Last Admin: 01/11/22 08:26 Dose: 650 mg Documented by: [id number] Acetaminophen (Acetaminophen 1000 Mg/100 Ml Iv) 1,000 mg IV Q8H PRN PRN Reason: pain 1-6 Stop: 01/14/22 15:35 Last Admin: 01/12/22 00:34 Dose: 1,000 mg Documented by: [id number] Admin: 01/11/22 15:50 Dose: 1,000 mg Documented by: [id number] Cephalexin HCl (Cephalexin 500 Mg Cap) 500 mg PO Q6H SCOTT Stop: 01/16/22 00:58 Last Admin: 01/12/22 13:15 Dose: 500 mg Documented by: [id number] Admin: 01/12/22 06:07 Dose: 500 mg Documented by: [id number] Admin: 01/11/22 23:25 Dose: 500 mg Documented by: [id number] Admin: 01/11/22 17:22 Dose: 500 mg Documented by: [id number] Admin: 01/11/22 11:46 Dose: 500 mg Documented by: [id number] Admin: 01/11/22 05:37 Dose: 500 mg Documented by: [id number] Admin: 01/11/22 01:50 Dose: 500 mg Documented by: [id number] Hydromorphone HCl (Hydromorphone Inj 0.5 Mg/0.5 Ml Syr) 0.5 mg IV NOW STA Stop: 01/10/22 22:08 Last Admin: 01/10/22 22:23 Dose: 0.5 mg Documented by: [id number] Hydromorphone HCl (Hydromorphone Inj 0.5 Mg/0.5 Ml Syr) 0.5 mg IV Q2H PRN PRN Reason: Pain Stop: 01/25/22 00:58 Last Admin: 01/11/22 13:33 Dose: 0.5 mg Documented by: [id number] Admin: 01/11/22 11:46 Dose: 0.5 mg Documented by: [id number] Admin: 01/11/22 07:44 Dose: 0.5 mg Documented by: [id number] Admin: 01/11/22 04:55 Dose: 0.5 mg Documented by: [id number] Admin: 01/11/22 02:21 Dose: 0.5 mg Documented by: [id number] Hydromorphone HCl (Hydromorphone Inj 0.5 Mg/0.5 Ml Syr) 0.5 mg IV Q4H PRN PRN Reason: Pain scale 7-10 Stop: 01/25/22 00:58 Last Admin: 01/12/22 02:41 Dose: 0.5 mg Documented by: [id number] Admin: 01/11/22 20:11 Dose: 0.5 mg Documented by: [id number] Hydromorphone HCl (Hydromorphone Inj 0.5 Mg/0.5 Ml Syr) 0.25 mg IV NOW STA Stop: 01/11/22 21:34 Last Admin: 01/11/22 22:13 Dose: 0.25 mg Documented by: [id number] Sodium Chloride (Nss) 500 mls @ 999 mls/hr IV .Q31M STA Stop: 01/10/22 14:22 Last Admin: 01/10/22 16:31 Dose: Not Given Documented by: [id number] Acetaminophen (Ofirmev) 1,000 mg in 100 mls @ 400 mls/hr IV NOW STA Stop: 01/10/22 15:00 Last Infusion: 01/10/22 16:38 Dose: 0 mls/hr Documented by: [id number] Admin: 01/10/22 14:49 Dose: 400 mls/hr Documented by: [id number] Sodium Chloride (Nss 1000ml) 1,000 mls @ 999 mls/hr IV .Q1H1M ONE Stop: 01/10/22 17:29 Last Infusion: 01/10/22 18:56 Dose: 0 mls/hr Documented by: [id number] Admin: 01/10/22 16:40 Dose: 999 mls/hr Documented by: [id number] Sodium Chloride (Nss 1000ml) 1,000 mls @ 125 mls/hr IV .Q8H SCOTT Stop: 02/10/22 00:58 Last Infusion: 01/12/22 15:02 Dose: 0 mls/hr Documented by: [id number] Admin: 01/12/22 07:47 Dose: 125 mls/hr Documented by: [id number] Infusion: 01/12/22 07:26 Dose: 125 mls/hr Documented by: [id number] Admin: 01/11/22 23:26 Dose: 125 mls/hr Documented by: [id number] Infusion: 01/11/22 23:14 Dose: 125 mls/hr Documented by: [id number] Admin: 01/11/22 15:14 Dose: 125 mls/hr Documented by: [id number] Infusion: 01/11/22 15:14 Dose: 125 mls/hr Documented by: [id number] Admin: 01/11/22 08:02 Dose: 125 mls/hr Documented by: [id number] Infusion: 01/11/22 08:02 Dose: 125 mls/hr Documented by: [id number] Admin: 01/11/22 01:50 Dose: 125 mls/hr Documented by: [id number] Morphine Sulfate (Morphine Sulfate 10 Mg/Ml Carp/Vial) 6 mg IV NOW STA Stop: 01/10/22 16:30 Last Admin: 01/10/22 16:38 Dose: 6 mg Documented by: [id number] Morphine Sulfate (Morphine Sulfate 10 Mg/Ml Carp/Vial) 6 mg IV NOW STA Stop: 01/10/22 18:12 Last Admin: 01/10/22 18:17 Dose: 6 mg Documented by: [id number] Ondansetron HCl (Ondansetron Inj 2 Mg/Ml 2 Ml Vial) 4 mg IV NOW STA Stop: 01/10/22 16:30 Last Admin: 01/10/22 16:40 Dose: 4 mg Documented by: [id number] Ondansetron HCl (Ondansetron Inj 2 Mg/Ml 2 Ml Vial) Confirm Administered Dose 4 mg .ROUTE .STK-MED ONE Stop: 01/10/22 19:43 Last Admin: 01/10/22 19:46 Dose: 4 mg Documented by: [id number] Ondansetron HCl (Ondansetron Inj 2 Mg/Ml 2 Ml Vial) 4 mg IV Q6H PRN PRN Reason: Nausea Stop: 02/10/22 00:58 Last Admin: 01/12/22 11:53 Dose: 4 mg Documented by: [id number] Admin: 01/11/22 09:13 Dose: 4 mg Documented by: [id number] Prenat Multivit/Occupational Therapy Instructor/Iron/Folic Ac ( Vitamin 1 Tab) 1 tab PO DAILY SCOTT Stop: 02/10/22 08:59 Last Admin: 01/12/22 08:45 Dose: 1 tab Documented by: [id number] Admin: 01/11/22 07:44 Dose: 1 tab Documented by: [id number] Tamsulosin HCl (Tamsulosin Hcl 0.4 Mg Cap) 0.4 mg PO HS SCOTT Stop: 02/10/22 00:58 Last Admin: 01/11/22 20:13 Dose: 0.4 mg Documented by: [id number] Admin: 01/11/22 01:50 Dose: 0.4 mg Documented by: [id number] Medical Decision Making Differential Diagnosis Differential diagnosis includes kidney stone, pyelonephritis, hydronephrosis, musculoskeletal pain, among others. Home Medications Current Medication List: was personally reviewed by me Laboratory Data Attestation: I reviewed the patient's lab results. Result diagrams: 01/11/22 05:32 01/11/22 05:32 Lab Results 01/10/22 01/10/22 01/10/22 Range/Units 13:53 13:53 13:55 WBC 8.53 (4.8-10.8) K/uL RBC 3.49 L (4.2-5.4) M/uL Hgb 10.2 L (12.0-16.0) g/dL Hct 30.8 L (37-47) % MCV 88.3 (80-100) fL MCH 29.2 (25-34) pg MCHC 33.1 (32-36) g/dL RDW Std Deviation 45.5 (36.4-46.3) fL RDW Coeff of Rodger 14.2 (11.5-14.5) % Plt Count 167 (130-400) K/uL MPV 9.9 (7.4-10.4) fL Sodium (136-145) mmol/L Potassium (3.5-5.1) mmol/L Chloride (98-107) mmol/L Carbon Dioxide (21-32) mmol/L Anion Gap (3-11) BUN (6-23) mg/dl Creatinine (0.6-1.2) mg/dl Est Cr Clr Drug Dosing ml/min Est GFR ( Amer) ml/min Est GFR (Non-Af Amer) ml/min BUN/Creatinine Ratio (10-20) Glucose (70-99(Fasting)) mg/dl Calcium (8.5-10.1) mg/dl Urine Color Yellow Urine Appearance Clear (Clear) Urine pH 7.0 (4.5-7.5) Ur Specific Eagle 1.014 (1.000-1.030) Urine Protein Negative (Negative) Urine Glucose (UA) Negative (Negative) Urine Ketones Negative (Negative) Urine Blood 3+ H (Negative) Urine Nitrite Negative (Negative) Urine Bilirubin Negative (Negative) Urine Urobilinogen Negative (Negative) Ur Leukocyte Esterase Negative (Negative) Urine WBC (Auto) 1-5 (0-5) /hpf Urine RBC (Auto) >30 H (0-4) /hpf U Hyaline Cast (Auto) 1-5 (0-5) /lpf U Epithel Cells (Auto) >30 H (0-5) /lpf Urine Bacteria (Auto) Negative (Negative) POC Ur Test Cancelled SARS-CoV-2, RNA, NAAT (NEGATIVE) 01/10/22 01/10/22 Range/Units 13:55 21:11 WBC (4.8-10.8) K/uL RBC (4.2-5.4) M/uL Hgb (12.0-16.0) g/dL Hct (37-47) % MCV (80-100) fL MCH (25-34) pg MCHC (32-36) g/dL RDW Std Deviation (36.4-46.3) fL RDW Coeff of Rodger (11.5-14.5) % Plt Count (130-400) K/uL MPV (7.4-10.4) fL Sodium 136 (136-145) mmol/L Potassium 3.9 (3.5-5.1) mmol/L Chloride 107 (98-107) mmol/L Carbon Dioxide 21 (21-32) mmol/L Anion Gap 8 (3-11) BUN 8 (6-23) mg/dl Creatinine 0.54 L (0.6-1.2) mg/dl Est Cr Clr Drug Dosing 168.3 ml/min Est GFR ( Amer) > 150.0 ml/min Est GFR (Non-Af Amer) 134.9 ml/min BUN/Creatinine Ratio 14.8 (10-20) Glucose 87 (70-99(Fasting)) mg/dl Calcium 8.7 (8.5-10.1) mg/dl Urine Color Urine Appearance (Clear) Urine pH (4.5-7.5) Ur Specific Eagle (1.000-1.030) Urine Protein (Negative) Urine Glucose (UA) (Negative) Urine Ketones (Negative) Urine Blood (Negative) Urine Nitrite (Negative) Urine Bilirubin (Negative) Urine Urobilinogen (Negative) Ur Leukocyte Esterase (Negative) Urine WBC (Auto) (0-5) /hpf Urine RBC (Auto) (0-4) /hpf U Hyaline Cast (Auto) (0-5) /lpf U Epithel Cells (Auto) (0-5) /lpf Urine Bacteria (Auto) (Negative) POC Ur Test SARS-CoV-2, RNA, NAAT NEGATIVE (NEGATIVE) Imaging Data Attestation: I personally reviewed and interpreted this imaging study as follows: Radiologist's Impression: Renal Ultrasound 01/10/22 16:29 RENAL ULTRASOUND HISTORY: left flank pain, pt , hematuria COMPARISON: Renal ultrasound 01/08/2022. FINDINGS: Right kidney: 12.2 cm. Mild fullness within the right renal collecting system wi thout caleb hydronephrosis. This remains unchanged and may be physiologic. Normal corticomedullary differentiation and cortical thickness. Left kidney: 14.3 cm. There is also mild fullness within the upper pole collecting system without caleb hydronephrosis. This is also unchanged. Normal corticomedullary differentiation and cortical thickness. Bladder: Bladder is decompressed and therefore not well evaluated. No definite bladder wall thickening. The ureteral jets are not identified. Miscellaneous: heart rate was 135 BPM. The spleen remains enlarged measuring 13.7 cm in length. IMPRESSION: 1. Mild fullness within the renal collecting systems without caleb hydronephrosis. This may be physiologic secondary to the patient's . 2. Stable splenomegaly. ACT 112: Negative or not required by law. Electronically signed by: Rashawn Craig M.D. 01/10/2022 6:11 PM Abdomen/Pelvis CT 01/10/22 19:[address] WITHOUT CONTRAST CT DOSE: 616.67 mGy.cm HISTORY: left flank pain, hematuria (pt - OB aware) TECHNIQUE: Multiaxial CT images of the abdomen and pelvis were performed without contrast. A dose lowering technique was utilized adhering to the principles of ALARA. COMPARISON STUDY: Renal ultrasound 01/10/2022. FINDINGS: A few small bibasilar linear densities consistent with subsegmental atelectasis. No fractures within the visualized osseous structures. Punctate calcified granuloma within the right hepatic lobe inferiorly. Otherwise, the unenhanced liver, gallbladder, spleen, adrenal glands, and pancreas are unremarkable. Normal caliber abdominal aorta. No retroperitoneal lymphadenopathy. There is a [address]one within the lower pole of the left kidney. There is also a 1 mm stone within the lower pole of the right kidney. Calcifications in the deep pelvis are nonspecific but favor phleboliths. The ureters are difficult to follow. However, no definite stones along the expected path of the ureters. There is mild fullness within the right renal collecting system. 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 The pelvocaliectasis could related to the patient's . The bladder is unremarkable. No pelvic free fluid. Suboptimal evaluation for bowel pathology due to the lack of intravenous and oral contrast. However, there is no definite bowel wall thickening or obstruction. Normal appendix. There is a single intrauterine gestation. There is a left/fundal placenta. The fetus is in a cephalic presentation. IMPRESSION: 1. There is mild fullness within the right renal collecting system. 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 The pelvocaliectasis could related to the patient's . No definite ureteral stones identified. However, the ureters are difficult to follow on this examination. 2. Bilateral nephrolithiasis. 3. No definite bowel wall thickening or obstruction. 4. Normal appendix. 5. Additional findings as described above. ACT 112: Negative or not required by law. Electronically signed by: Rashawn Craig M.D. 01/10/2022 8:07 PM MDM Narrative The patient is a 21-year-old female, currently 33 weeks , who presents today complaining of severe flank pain. Patient was seen here recently for this and was admitted overnight. She was feeling better but states that her pain returned this morning and has been severe. Labs today with no leukocytosis. P atient is slightly anemic. Kidney function is within normal limits. I discussed with Dr. Driscoll, who advised performing a CT scan. This was performed and did not reveal a definite stone. Again, discussed with Dr. Driscoll who felt that in light of the patient's symptoms, it would be best to admit her and treat her for a probable stone. [facility] the patient for further care. Impression & Plan Left flank pain Discharge Plan Visit Data Chief Complaint: Flank Pain Stated Complaint: BACK PAIN, 33 WEEKS , TOLD TO COME BACK ED Provider: Dwayne Guerrero ED Midlevel Provider: Desiree Oneil Discharge Problem: Left flank pain Patient Disposition: Admitted As Inpatient Discharge Instructions Interventions: ED Discharge Assessment Last Done: 01/11/22 00:15
--- NOTE | 2022-01-10 18:12 | Ultrasound Report ---
RENAL ULTRASOUND HISTORY: left flank pain, pt , hematuria COMPARISON: Renal ultrasound 01/08/2022. FINDINGS: Right kidney: 12.2 cm. Mild fullness within the right renal collecting system without caleb hydroneph rosis. This remains unchanged and may be physiologic. Normal corticomedullary differentiation and cor tical thickness. Left kidney: 14.3 cm. There is also mild fullness within the upper pole collecting system without fra nk hydronephrosis. This is also unchanged. Normal corticomedullary differentiation and cortical thick ness. Bladder: Bladder is decompressed and therefore not well evaluated. No definite bladder wall thickenin g. The ureteral jets are not identified. Miscellaneous: heart rate was 135 BPM. The spleen remains enlarged measuring 13.7 cm in length. IMPRESSION: 1. Mild fullness within the renal collecting systems without caleb hydronephrosis. This may be physio logic secondary to the patient's . 2. Stable splenomegaly. ACT 112: Negative or not required by law. Electronically signed by: Rashawn Craig M.D. 01/10/2022 6:11 PM
[2022-01-10] MEDS ORDERED: ONDANSETRON INJ 2 MG/ML 2 ML VIAL ONE (19:42)
--- NOTE | 2022-01-10 20:09 | CT Scan Report ---
ABDOMEN AND PELVIS CT WITHOUT CONTRAST CT DOSE: 616.67 mGy.cm HISTORY: left flank pain, hematuria (pt - OB aware) TECHNIQUE: Multiaxial CT images of the abdomen and pelvis were performed without contrast. A dose lo wering technique was utilized adhering to the principles of ALARA. COMPARISON STUDY: Renal ultrasound 01/10/2022. FINDINGS: A few small bibasilar linear densities consistent with subsegmental atelectasis. No fractur es within the visualized osseous structures. Punctate calcified granuloma within the right hepatic lo be inferiorly. Otherwise, the unenhanced liver, gallbladder, spleen, adrenal glands, and pancreas are unremarkable. Normal caliber abdominal aorta. No retroperitoneal lymphadenopathy. There is a [address] one within the lower pole of the left kidney. There is also a 1 mm stone within the lower pole of the right kidney. Calcifications in the deep pelvis are nonspecific but favor phleboliths. The ureters a re difficult to follow. However, no definite stones along the expected path of the ureters. There is mild fullness within the right renal collecting system. There appears to be a duplicated left renal c ollecting system with mild fullness within the upper pole moiety. The pelvocaliectasis could related to the patient's . The bladder is unremarkable. No pelvic free fluid. Suboptimal evaluation for bowel pathology due to the lack of intravenous and oral contrast. However, there is no definite b owel wall thickening or obstruction. Normal appendix. There is a single intrauterine gestation. There is a left/fundal placenta. The fetus is in a cephalic presentation. IMPRESSION: 1. There is mild fullness within the right renal collecting system. 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 The pelvocaliectasis co uld related to the patient's . No definite ureteral stones identified. However, the ureters are difficult to follow on this examination. 2. Bilateral nephrolithiasis. 3. No definite bowel wall thickening or obstruction. 4. Normal appendix. 5. Additional findings as described above. ACT 112: Negative or not required by law. Electronically signed by: Rashawn Craig M.D. 01/10/2022 8:07 PM
--- NOTE | 2022-01-10 21:43 | History & Physical Report ---
Date of Service January 10, 2022 Assessment & Plan (1) Left flank pain: (2) Splenomegaly: (3) Asymptomatic bacteriuria during : Plan: Paty Wilks is a 21-year-old at 33 weeks gestation who came to [facility] due to recurrent severe left flank pain. 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 Pelvocaliectasis could be related to the patient's . No definite ureteral stones identified, however the ureters are difficult to follow. Bilateral nephrolithiasis. - Unclear etiology -- DDx including kidney stone as this cannot be fully ruled out despite negative imaging, positioning, MSK - Admit to med tele -Tylenol 650 mg p.o. orally for mild pain, Dilaudid 0.5 mg IV every 2 hours for severe pain - IVF w/ NSS @ 125 cc/h - Consult Urology - Consult OB - NST ordered due to treatment with opioid medications - CBC & CMP in AM Asymptomatic bacteriuria - UA showing 1+ bacteria on prior admission, currently negative for bacteria - Discharged on Keflex p.o. every 6 hours x7 total days at last admission - Today is day 3 of 7, continue to completion Splenomegaly - Mild splenomegaly on Renal US with spleen measuring 13.5 cm seen on 01/08 stable on repeat ultrasound today - Unclear etiology - Monospot negative on last admission DVT ppx: SCDs, chemoppx contraindicated Diet: NPO, NSS @ 125 cc/h Dispo: Med tele CODE STATUS: Full History of Present Illness Primary Care Provider: Nicol Dykes MD Paty Wilks is a 21-year-old at 33 weeks gestation who arrives due to recurrent severe left flank pain. She was admitted to our hospital with similar complaints on 01/08/2022. At that visit, she had a renal ultrasound showing hydronephrosis of the right kidney, but no acute findings on the left. She was evaluated by urology, who considered that she did not require further intervention. Her pain was able to be well controlled throughout her admission, and she was discharged home with as needed Tylenol, and instructed to use moist heat and foam rollers as needed. Additionally, patient had asymptomatic bacteriuria at last visit and was treated initially with ceftriaxone, which was then transitioned to Keflex 500 mg every 6 hours for total 7 days of treatment. Patient states that severe pain returned today around 3 AM. Pain is 10 out of 10, mainly in the left flank and radiates toward the left side of her abdomen at times. She tried Tylenol, heat, ice at home without significant relief. Patient has noticed normal movement, no vaginal bleeding or discharge. She denies urinary symptoms at this time, and has not noticed any blood in her urine. Denies fever, chills, nausea, vomiting, chest pain, palpitations, shortness of breath, headache, dizziness, leg swelling, muscle weakness, limb numbness. In the ED, patient had labs showing normal white count, stable anemia with hemoglobin of 10.2, normal platelet count, normal electrolytes, and a UA positive for 3+ blood. Repeat renal ultrasound showed mild fullness within the renal collecting systems without caleb hydronephrosis, may be physiologic secondary to . On-call OB was contacted, and CT of the abdomen was deemed to be acceptable. CT A/P: 1. There is mild fullness within the right renal collecting system. 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 The pelvocaliectasis could related to the patient's . No definite ureteral stones identified. However, the ureters are difficult to follow on this examination. 2. Bilateral nephrolithiasis. 3. No definite bowel wall thickening or obstruction. 4. Normal appendix. In the ED patient received acetaminophen 1000 mg x 1, morphine 6 mg IV x1, NSS 1 L bolus, Zofran 4 mg x 1. Shortly thereafter, patient had pain recurrence and received another 6 mg of IV morphine around 2 hours after initial dose. Upon my evaluation, patient is doubled over in pain on the floor with her mother in the room, stating that she cannot find a comfortable position. She states that the morphine did not help much, if anything a few minutes. Allergies Allergy/AdvReac Type Severity Reaction Status Date / Time No Known Allergies Allergy Verified 01/10/22 21:48 Home Medications Medication Instructions Recorded Confirmed Type cephalexin 500 mg capsule 500 mg PO QID 01/10/22 01/10/22 History vit no.95-ferrous 1 tab PO DAILY 01/10/22 01/10/22 History fumarate 28 mg-folic acid 800 mcg tablet () Past Med/Surg History Medical History Acute otitis externa Acute sinusitis Cough Stye Varicella vaccination Viral URI Surgical History H/O tooth extraction and implant History of tonsillectomy Family History Grandmother (Maternal) Ovarian cancer Cervical cancer Denies family history of Prostate cancer Breast cancer Colorectal cancer Social History Smoking Status: Never smoker Second Hand Exposure: No; Hx Alcohol Use: No Hx Substance Use: No Preferred Language: Canadian Communication Ability: Effective Visual Impairment: No Limitations Hearing Ability: Normal Stenocaptioner Required: No Beliefs That Will Affect Care: None marital status: Single marital status details: RODOLFO Ramos (33) [phone] Current Living Situation: Significant Other Current Living Situation Comment: Lives with Boyfriend current occupational status: employed current occupation: [email or web address] and [employer] Feels Safe at Home: Yes Safety Concerns: Feels Safe At This Time Assistive Devices: None Review of Systems Review of Systems: All systems reviewed & are unremarkable except as noted in HPI & below Physical Exam Physical Exam: GENERAL: A&Ox3. In severe acute pain. HEENT: PERRL, EOMI. Moist mucous membranes. NECK: No JVD. No lymphadenopathy. CHEST/LUNGS: CTAB A/P. No crackles, wheezes, rales, rhonchi. HEART: RRR. No m/g/r. No carotid bruits. ABDOMEN: Gravid abdomen, nontender, soft. CVA tenderness on the left. EXTREMITIES: No cyanosis, no clubbing, no edema SKIN: Warm and dry. No rashes or lesions. PSYCHIATRIC: Euthymic affect, no SI, no pressured speech, no hallucinations NEUROLOGIC: No FND. CN II-XII grossly intact. Results & Data Results & Data ([facility]) Vital Signs (Past 12 Hours) Vital Signs Temp Pulse Pulse Resp BP BP Pulse Ox 01/10/22 18:08 96 H 17 97 01/10/22 16:00 98 H 19 119/74 98 01/10/22 13:47 36.6 C 114 H 18 113/66 100 Laboratory Results Laboratory Results WBC 8.53 K/uL (4.8-10.8) 01/10/22 13:55 RBC 3.49 M/uL (4.2-5.4) L 01/10/22 13:55 Hgb 10.2 g/dL (12.0-16.0) L 01/10/22 13:55 Hct 30.8 % (37-47) L 01/10/22 13:55 MCV 88.3 fL (80-100) 01/10/22 13:55 MCH 29.2 pg (25-34) 01/10/22 13:55 MCHC 33.1 g/dL (32-36) 01/10/22 13:55 RDW Std Deviation 45.5 fL (36.4-46.3) 01/10/22 13:55 RDW Coeff of Rodger 14.2 % (11.5-14.5) 01/10/22 13:55 Plt Count 167 K/uL (130-400) 01/10/22 13:55 MPV 9.9 fL (7.4-10.4) 01/10/22 13:55 Sodium 136 mmol/L (136-145) 01/10/22 13:55 Potassium 3.9 mmol/L (3.5-5.1) 01/10/22 13:55 Chloride 107 mmol/L (98-107) 01/10/22 13:55 Carbon Dioxide 21 mmol/L (21-32) 01/10/22 13:55 Anion Gap 8 (3-11) 01/10/22 13:55 BUN 8 mg/dl (6-23) 01/10/22 13:55 Creatinine 0.54 mg/dl (0.6-1.2) L 01/10/22 13:55 Est Cr Clr Drug Dosing 168.3 ml/min 01/10/22 13:55 Est GFR ( Amer) > 150.0 ml/min 01/10/22 13:55 Est GFR (Non-Af Amer) 134.9 ml/min 01/10/22 13:55 BUN/Creatinine Ratio 14.8 (10-20) 01/10/22 13:55 Glucose 87 mg/dl (70-99(Fasting)) 01/10/22 13:55 Calcium 8.7 mg/dl (8.5-10.1) 01/10/22 13:55 Urine Color Yellow 01/10/22 13:53 Urine Appearance Clear (Clear) 01/10/22 13:53 Urine pH 7.0 (4.5-7.5) 01/10/22 13:53 Ur Specific [place] 1.014 (1.000-1.030) 01/10/22 13:53 Urine Protein Negative (Negative) 01/10/22 13:53 Urine Glucose (UA) Negative (Negative) 01/10/22 13:53 Urine Ketones Negative (Negative) 01/10/22 13:53 Urine Blood 3+ (Negative) H 01/10/22 13:53 Urine Nitrite Negative (Negative) 01/10/22 13:53 Urine Bilirubin Negative (Negative) 01/10/22 13:53 Urine Urobilinogen Negative (Negative) 01/10/22 13:53 Ur Leukocyte Esterase Negative (Negative) 01/10/22 13:53 Urine WBC (Auto) 1-5 /hpf (0-5) 01/10/22 13:53 Urine RBC (Auto) >30 /hpf (0-4) H 01/10/22 13:53 U Hyaline Cast (Auto) 1-5 /lpf (0-5) 01/10/22 13:53 U Epithel Cells (Auto) >30 /lpf (0-5) H 01/10/22 13:53 Urine Bacteria (Auto) Negative (Negative) 01/10/22 13:53 SARS-CoV-2, RNA, NAAT NEGATIVE (NEGATIVE) 01/10/22 21:11 Impressions Renal Ultrasound 01/10/22 16:29 RENAL ULTRASOUND HISTORY: left flank pain, pt , hematuria COMPARISON: Renal ultrasound 01/08/2022. FINDINGS: Right kidney: 12.2 cm. Mild fullness within the right renal collecting system without caleb hydronephrosis. This remains unchanged and may be physiologic. Normal corticomedullary differentiation and cortical thickness. Left kidney: 14.3 cm. There is also mild fullness within the upper pole collecting system without caleb hydronephrosis. This is also unchanged. Normal corticomedullary differentiation and cortical thickness. Bladder: Bladder is decompressed and therefore not well evaluated. No definite bladder wall thickening. The ureteral jets are not identified. Miscellaneous: heart rate was 135 BPM. The spleen remains enlarged measuring 13.7 cm in length. IMPRESSION: 1. Mild fullness within the renal collecting systems without caleb hydronephrosis. This may be physiologic secondary to the patient's . 2. Stable splenomegaly. ACT 112: Negative or not required by law. Electronically signed by: Rashawn Craig M.D. 01/10/2022 6:11 PM Abdomen/Pelvis CT 01/10/22 19:[address] WITHOUT CONTRAST CT DOSE: 616.67 mGy.cm HISTORY: left flank pain, hematuria (pt - OB aware) TECHNIQUE: Multiaxial CT images of the abdomen and pelvis were performed without contrast. A dose lowering technique was utilized adhering to the principles of ALARA. COMPARISON STUDY: Renal ultrasound 01/10/2022. FINDINGS: A few small bibasilar linear densities consistent with subsegmental atelectasis. No fractures within the visualized osseous structures. Punctate calcified granuloma within the right hepatic lobe inferiorly. Otherwise, the unenhanced liver, gallbladder, spleen, adrenal glands, and pancreas are unremarkable. Normal caliber abdominal aorta. No retroperitoneal lymphadenopathy. There is a [address]one within the lower pole of the left kidney. There is also a 1 mm stone within the lower pole of the right kidney. Calcifications in the deep pelvis are nonspecific but favor phleboliths. The ureters are difficult to follow. However, no definite stones along the expected path of the ureters. There is mild fullness within the right renal collecting system. 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 The pelvocaliectasis could related to the patient's . The bladder is unremarkable. No pelvic free fluid. Suboptimal evaluation for bowel pathology due to the lack of intravenous and oral contrast. However, there is no definite bowel wall thickening or obstruction. Normal appendix. There is a single intrauterine gestation. There is a left/fundal placenta. The fetus is in a cephalic presentation. IMPRESSION: 1. There is mild fullness within the right renal collecting system. 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 The pelvocaliectasis could related to the patient's . No definite ureteral stones identified. However, the ureters are difficult to follow on this examination. 2. Bilateral nephrolithiasis. 3. No definite bowel wall thickening or obstruction. 4. Normal appendix. 5. Additional findings as described above. ACT 112: Negative or not required by law. Electronically signed by: Rashawn Craig M.D. 01/10/2022 8:07 PM Supervising Physician Co-Signing Physician Notes Patient seen and examined, chart reviewed, case discussed with Dr. Wes Biggs and I agree with the assessment and plan as above. In brief, patient is a 21yo G1PO at 33 weeks gestation presenting with severe left flank pain. On exam she is in moderate distress secondary to discomfort. Able to answer questions and participate in exam. Afebrile, HD stable Skin - intact, no rash HEENT - Neck supple, MMM Heart - +S1/S2, regular, no m/r/g Lungs - CTA Abd - Gravid uterus, Left CVA tenderness Ext - well perfused Labs and images reviewed. Significant for stable normochromic/normocytic anemia with Hgb=10.2, normal renal function and electrolytes. UA with 3+ blood, >30 RBCs/hpf as well as epis CT with bilateral nephrolithiasis. Fullness within the right renal collecting system. Duplicated left renal collecting system with mild fullness in the upper pole moiety - possibly related to . No definite ureteral stones identified, however ureters are difficult to track. Assessment/Plan -21yo G1PO at 33 weeks presenting with acute left flank pain, concerning for ureteral stone -Management with pain control - patient received very brief control with Morphine total 12mg given in ER - will cautiously prescribe Dilaudid as needed. -Daily NST, OB consult appreciated -Urology consultation appreciated -Remainder as above Resident Activity Tracking Resident Involvement: Resident Care Provided Care Provided: Adult [facility] Medicine
[2022-01-10] MEDS ORDERED: HYDROmorphone INJ 0.5 MG/0.5 ML SYR IV STA (22:07)
[2022-01-11] MEDS ORDERED: ACETAMINOPHEN 325 MG TAB PO PRN (00:59)
[2022-01-11] MEDS: SODIUM CHLORIDE 0.9% 1000ML 1,000 ML IV SCH ×4 (01:50→23:26)
[2022-01-11] MEDS: cephALEXin 500 MG CAP PO SCH ×5 (01:50→23:25)
[2022-01-11] MEDS: TAMSULOSIN HCL 0.4 MG CAP PO SCH ×2 (01:50→20:13)
[2022-01-11] MEDS: HYDROmorphone INJ 0.5 MG/0.5 ML SYR IV PRN ×6 (02:21→20:11)
--- NOTE | 2022-01-11 03:07 | Billing Data ---
Date of Service January 10, 2022 Coding Level of Care Code 72703 Initial Inpt Care Lvl 2
[2022-01-11 06:27] LABS: Eosinophils # (auto) 0.04 K/uL (0-0.5); Eosinophils % (auto) 0.4 %; Hematocrit (blood only) 28.6 % (37-47); Hemoglobin 9.4 g/dL (12.0-16.0); Immature Granulocytes # (auto) 0.04 K/uL (0.00-0.02); Immature Granulocytes % (auto) 0.4 %; Lymphocytes # (auto) 1.64 K/uL (1.2-3.4); Lymphocytes % (auto) 14.6 %; Mean Corpuscular Hemoglobin 29.7 pg (25-34); Mean Corpuscular Hgb Conc 32.9 g/dL (32-36); Mean Corpuscular Volume 90.2 fL (80-100); Mean Platelet Volume 9.9 fL (7.4-10.4); Monocytes # (auto) 0.57 K/uL (0.11-0.59); Monocytes % (auto) 5.1 %; Neutrophils # (auto) 8.98 K/uL (1.4-6.5); Neutrophils % (auto) 79.5 %; Platelet Count 153 K/uL (130-400); RDW Coefficient of Variation 14.4 % (11.5-14.5); RDW Standard Deviation 46.9 fL (36.4-46.3); Red Blood Count 3.17 M/uL (4.2-5.4); White Blood Count 11.27 K/uL (4.8-10.8)
--- NOTE | 2022-01-11 06:44 | OB/GYN Consultation ---
Date of Consultation January 11, 2022 Assessment & Plan (1) Left flank pain: I suspect she has a utereral stone that is not visualized given the 3+ blood in her urine and evidence of other renal stones on CT scan. and hopefully it has now passed into the bladder. continue IV pain meds as needed and continue to strain all urines we await urology's recommendations continue NST's each shift while admitted (2) Encounter for supervision of normal intrauterine in primigravida, antepartum: History of Present Illness Reason for Consultation: 33-week gestation with recurrent left flank pain Attending Physician: Winnie Willson DO History of Present Illness Patient is a 21-year-old G1, P0 white female who presented over the weekend with left flank pain for which she was admitted. She had been treated with some IV Tylenol and antibiotics for per possible pyelonephritis or ureteral stone. Renal ultrasound did not reveal a obvious stone. She was sent home on p.o. antibiotics. She had been afebrile throughout her hospital stay and continued to be so at home. The day prior to this admission she had recurrence of the left flank pain which was much more severe and now is radiating to the left lower quadrant. She has not noted any hematuria no vaginal bleeding no vaginal discharge present she denies any cramping or contractions. Baby has been active. She has had no fever or chills. She tried methods for controlling the pain at home including Tylenol ice and heat and the pain continued. Renal ultrasound in the ER again showed no obvious stones. CT scan of the abdomen revealed a 1 mm stone in the right renal pelvis and a 2 mm stone in the left renal pelvis with a duplicated system on the left as well. She is afebrile and her white count is normal. Urine again shows 3+ blood but no bacteria. She was admitted for pain control. At this time she is feeling better the Dilaudid is controlling her pain but does wear off in 2 hours. Initial NST done was reactive. Allergies Allergy/AdvReac Type Severity Reaction Status Date / Time No Known Allergies Allergy Verified 01/10/22 21:48 Home Medications Medication Instructions Recorded Confirmed Type cephalexin 500 mg capsule 500 mg PO QID 01/10/22 01/10/22 History vit no.95-ferrous 1 tab PO DAILY 01/10/22 01/10/22 History fumarate 28 mg-folic acid 800 mcg tablet () Patient History Medical History Acute otitis externa Acute sinusitis Cough Stye Varicella vaccination Viral URI Surgical History H/O tooth extraction and implant History of tonsillectomy Family History Grandmother (Maternal) Ovarian cancer Cervical cancer Denies family history of Prostate cancer Breast cancer Colorectal cancer Social History Smoking Status: Never smoker Second Hand Exposure: No; Hx Alcohol Use: No Hx Substance Use: No Preferred Language: Taiwanese Communication Ability: Effective Visual Impairment: No Limitations Hearing Ability: Normal Pvc Monitor Required: No Beliefs That Will Affect Care: None marital status: Single marital status details: RODOLFO Ramos (33) [phone] Current Living Situation: Significant Other Current Living Situation Comment: Lives with Boyfriend current occupational status: employed current occupation: [email or web address] Feels Safe at Home: Yes Safety Concerns: Feels Safe At This Time Assistive Devices: None Review of Systems Review of Systems: All systems reviewed & are unremarkable except as noted in HPI & below Physical Exam Constitutional: WD/WN, vitals as above Gastrointestinal (Abdomen): mild Left CVA tenderness Psychiatric: A+Ox3, euthymic affect Genitourinary: uterus is soft and nontender Results & Data ([facility]) Vital Signs (Past 12 Hours) Vital Signs Temp Pulse Resp BP Pulse Ox 01/11/22 00:30 97.9 F 78 16 106/69 100 01/11/22 00:03 93 H 16 107/63 97 01/10/22 22:29 95 H 18 97 PG Care Time/CCT Total # of Minutes Spent Total Time Spent with Patient: Total time spent is greater than 50% in coordination of care (as documented) at patient's floor/unit and/or counseling patient: Coding Level of Care Code 54060 Inpt Consult Level 3 Diagnoses Left flank pain R10.9 Encounter for supervision of normal intrauterine in primigravida, antepartum Z34.00
[2022-01-11 06:45] LABS: Alanine Aminotransferase 10 U/L (7-52); Albumin Globulin Ratio 1.1 (0.9-2); Albumin Level 3.1 gm/dl (3.4-5.0); Alkaline Phosphatase 75 U/L (34-104); Anion Gap 9 (3-11); Aspartate Aminotransferase 15 U/L (13-39); BUN Creatinine Ratio 10.9 (10-20); Bilirubin,Total 0.5 mg/dl (0.2-1.0); Blood Urea Nitrogen 6 mg/dl (6-23); Calcium 8.1 mg/dl (8.5-10.1); Carbon Dioxide 20 mmol/L (21-32); Chloride 107 mmol/L (98-107); Creatinine Clr Calc Pharmacy 175.3 ml/min; Est GFR (African American) > 150.0 ml/min; Est GFR (Non-African American) 134.1 ml/min; Globulin 2.7 gm/dl (2.5-4.0); Glucose 82 mg/dl (70-99(Fasting)); Potassium 3.7 mmol/L (3.5-5.1); Sodium 136 mmol/L (136-145); Total Protein 5.8 gm/dl (6.0-8.3)
[2022-01-11] MEDS: PRENATAL VITAMIN 1 TAB PO SCH (07:44)
[2022-01-11] MEDS: ONDANSETRON INJ 2 MG/ML 2 ML VIAL IV PRN (09:13)
--- NOTE | 2022-01-11 09:14 | Urology Consultation ---
Date of Consultation January 11, 2022 Assessment & Plan (1) Left flank pain: 21 yo F at 33 weeks gestation admitted for recurrent left flank pain. - Imaging and plan of care reviewed with Dr. Garcia, urologist operational risk analyst. - Patient continues to have left flank pain, currently tolerable with anal gesics. - Remains afebrile, nontoxic, lab work reviewed and stable - creatinine 0.55, WBC 11.27. - Urinalysis with 1-5 WBC, >30 RBCs, and >30 epithelials. - Prior urine culture on 01/08 showed high counts of probable mixed abdulaziz. - She is currently on Cephalexin from prior admission. 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 - Agree with radiology read that ureters are difficult to follow, but there are no obvious signs of obstruction. Calcifications in the deep pelvis favor phleboliths. The findings of pelvocaliectasis are within expectations for her current 33-week gestation. - No acute intervention at this time given current status and she remains afebrile and clinically stable. - Recommend supportive care and pain management per primary service. - Ideally would manage symptoms/possible stones through her and reassess . - If patient declines and intervention warranted, then consider transfer to tertiary center for percutaneous intervention. - See attending note for further details on plan of care. Supervising Physician Co-Signing Physician Notes I have discussed Ms. Wilks's case with GAGANDEEP Carrera and agree with the above documentation. It is somewhat challenging to follow the ureters on the CT scan, but there is no obvious obstructing stone. I think most likely the hydronephrosis and her symptoms are related to pressure from her gravid uterus. For now, I would recommend pain control and expectant management. If she has persistent pain that cannot be controlled or if she starts to show signs of an obstructed infection, I would recommend transfer to a facility with interventional radiology for consideration of percutaneous nephrostomy tubes. Ureteral stent placement tends to be poorly tolerated in patients, and especially in the setting of a possibly duplicated collecting system, more definitive drainage would likely will be achieved with the percutaneous n ephrostomy tube. This has the added benefit that it can potentially avoid general anesthesia, which would be required for ureteral stent placement. History of Present Illness Reason for Consultation: recurrent left flank pain, left pelvocaliectasis Requesting Physician: Dr. Willson Attending Physician: Sheldon Pascual MD History of Present Illness 21 yo F at 33 weeks gestation admitted for recurrent left flank pain. She was recently hospitalized on 01/08/22 for severe left flank pain. SATURNINO on 01/08 showed splenomegaly as well as mild fullness of right collecting system without caleb hydronephrosis, no stones seen. Right sided findings felt to be consistent with expectations for her current 33-week gestation. No left sided findings to suggest kidney stone. Urology service was consulted at that time and no surgical intervention warranted. She was treated with antibiotics and supportive care. Patient was feeling better and was discharged with course of PO Cephalexin for bacteriuria. Unfortunately, she developed recurrence of severe left flank pain which prompted return to ED on 01/10/22. On arrival, she was afebrile. Lab work independently reviewed and creatinine 0.54, WBC 8.53, and Hgb 10.2. Urinalysis notable for 3+ blood, 1-5 WBCs, >30 RBCs, >30 Epithelials. No urine culture obtained. Her previous urine culture from 01/08 showed high counts of mixed organisms. She is currently on Cephalexin. CTAP without contrast notable for bilateral nonobstructing renal stones, mild fullness within the right renal collecting system. 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 No definite ureteral stones identified. Calcifications in the deep pelvis favor phleboliths. ED course included IV fl uids, Morphine, Tylenol, and Ondansetron. She was admitted to hospital medicine service. [employer] consulted. Urology service consulted for recurrent left flank pain, left pelvocaliectasis. Chart review: Afebrile Creatinine 0.55 WBC 11.27 No urine culture pending Currently on PO Cephalexin Patient seen and examined at bedside this AM. She is awake, alert and sitting up in bed. Currently reports mild left flank pain, currently tolerable. Notes moderate relief with Hydromorphone and Tylenol. Reports nausea, but no vomiting. Voiding spontaneously without difficulty. No gross hematuria, but notes darker urine. No dysuria. No fever or chills. No prior stone history. No known family history of stones. Offers no additional complaints at present. Allergies Allergy/AdvReac Type Severity Reaction Status Date / Time No Known Allergies Allergy Verified 01/10/22 21:48 Home Medications Medication Instructions Recorded Confirmed Type cephalexin 500 mg capsule 500 mg PO QID 01/10/22 01/10/22 History vit no.95-ferrous 1 tab PO DAILY 01/10/22 01/10/22 History fumarate 28 mg-folic acid 800 mcg tablet () Patient History Medical History Acute otitis externa Acute sinusitis Cough Stye Varicella vaccination Viral URI Surgical History H/O tooth extraction and implant History of tonsillectomy Family History Grandmother (Maternal) Ovarian cancer Cervical cancer Denies family history of Prostate cancer Breast cancer Colorectal cancer Social History Smoking Status: Never smoker Second Hand Exposure: No; Hx Alcohol Use: No Hx Substance Use: No Preferred Language: French Communication Ability: Effective Visual Impairment: No Limitations Hearing Ability: Normal Analyst Required: No Beliefs That Will Affect Care: None marital status: Single marital status details: RODOLFO Ramos (33) [phone] Current Living Situation: Significant Other Current Living Situation Comment: Lives with Boyfriend current occupational status: employed 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 Feels Safe at Home: Yes Safety Concerns: Feels Safe At This Time Assistive Devices: None Review of Systems Constitutional: as per Subjective / HPI Eyes: no problem reported Ear, Nose, Mouth, Throat: no problem reported Respiratory: no problem reported Cardiovascular: no problem reported Gastrointestinal: as per Subjective / HPI Genitourinary: as per Subjective / HPI Musculoskeletal: no problem reported Integumentary: no problem reported Neurologic: no problem reported Psychiatric: no problem reported Physical Exam Constitutional: well developed and well nourished; no acute distress and not ill appearing Eyes: no scleral abnormality Neck: normal visual inspection Respiratory: normal respiratory effort and able to speak in complete sentences; no respiratory distress and no labored breathing Cardiovascular: Extremities: no pedal edema Gastrointestinal (Abdomen): Gravid abdomen, no tenderness or guarding Musculoskeletal: Head/Neck/Chest: normocephalic and head atraumatic Skin: no visible rashes Neurologic: moves all extremities and awake Psychiatric: Orientation: alert and oriented x 3 Eye Contact: good eye contact Genitourinary: no CVA tenderness Results & Data ([facility]) Vital Signs (Past 12 Hours) Vital Signs Temp Pulse Resp BP Pulse Ox 01/11/22 08:42 36.7 C 117 H 16 107/66 98 01/11/22 00:30 36.6 C 78 16 106/69 100 01/11/22 00:03 93 H 16 107/63 97 01/10/22 22:29 95 H 18 97 PG Care Time/CCT Total # of Minutes Spent Total Time Spent with Patient: Total time spent is greater than 50% in coordination of care (as documented) at patient's floor/unit and/or counseling patient: Coding Level of Care Code 81777 Inpt Consult Level 3 Diagnoses Left flank pain R10.9
--- NOTE | 2022-01-11 15:26 | Hospitalist Progress Note ---
Date of Service January 11, 2022 Assessment & Plan (1) Left flank pain: Plan: Patient is a 33w female admitted with recurrent left flank pain With nonobstructing bilateral renal calculi noted on imaging, no obvious obstructing stones identified however ureters are difficult to follow Pain control ordered by admitting team with Tylenol 650 mg orally for mild pain and Dilaudid 0.5 mg IV every 2 hours for severe pain Despite the above regimen, patient continues to have uncontrolled pain (alerted by RN this afternoon that she was in severe pain that was not relieved by Dilaudid) Urology has been consulted, appreciate recommendations, recommending that if pain control cannot be achieved to transfer for nephrostomy tubes OB consulted and following along Dilaudid dose and frequency to high in advanced which can cause respiratory depression in baby, NSTs ordered every shift, space out Dilaudid to every 4 hours and only w/ scale of 7-10 D/C oral Tylenol and change to IV Tylenol 1 g every 8 hours as needed mild to moderate pain (scale 1-6) Continue IV fluid hydration with NSS at 125 mL/h (2) Splenomegaly: Plan: Follow-up as an outpatient Monospot done during previous admission (01/08) which was negative (3) Asymptomatic bacteriuria during : Plan: Currently on oral Keflex from previous admission, complete course as prescribed (day #4/) Continues to endorse no dysuria Plan: Interventions as outlined above. Repeat labs in the morning Attempt to achieve better pain control (within reason) in order to d/c patient back home ?Urology advising tx for nephrostomy tubes v ureteral stenting Plan d/w OB and Dr. Pascual Admission and Anticipated Discharge Date Admission Date: January 10, 2022 Subjective Patient seen on daily rounds this morning. During rounds she was comfortable, lying in bed, reported no pain at present. Pain does seem to get worse when moving around. She denies n/v. Feeling baby move. No vaginal bleeding or fluid leaking. Review of Systems Review of Systems: CONSTITUTIONAL: Denies weight loss/gain, fever and chills, fatigue, malaise, generalized weakness. HEENT: Denies changes in vision and hearing. RESPIRATORY: Denies SOB, cough, wheezing. CV: Denies palpitations, CP, lower extremity edema, orthopnea, PND. GI: Denies abdominal pain, nausea, vomiting and diarrhea. : +L flank pain, denies dysuria, urgency, frequency. MUSCULOSKELETAL: Denies myalgia and joint pain. SKIN: Denies rash and pruritus. NEUROLOGICAL: Denies headache, syncope, focal weakness, numbness, tingling. PSYCHIATRIC: Denies recent changes in mood. Denies anxiety and depression. Physical Exam Physical Exam: GENERAL: 21 yo well-developed, well-nourished wf, pleasant, cooperative. NAD. LUNGS: Clear to auscultation bilaterally. No W/R/R. CARDIOVASCULAR: Regular rate and rhythm. No M/G/R. No JVD. ABDOMEN: Soft, non-tender and non-distended. BS normal x 4 quad. : No significant CVA tenderness elicited EXTREMITIES: No edema. Non-tender. Peripheral pulses +2/4. NEUROLOGIC: A&O x3. PSYCHIATRIC: Cooperative. Appropriate mood and affect. SKIN: Warm, dry, intact. No rashes or lesions. Results & Data Results & Data ([facility]) Vital Signs (Past 12 Hours) Vital Signs Temp Pulse Resp BP Pulse Ox 01/11/22 08:42 36.7 C 117 H 16 107/66 98 Laboratory Results 01/11/22 05:32 01/11/22 05:32 PG Care Time/CCT Total # of Minutes Spent Total Time Spent with Patient: Total time spent is greater than 50% in coordination of care (as documented) at patient's floor/unit and/or counseling patient: Coding Level of Care Code 76564 Subseq Hosp Care Lvl 2 Diagnoses Left flank pain R10.9 Splenomegaly R16.1 Asymptomatic bacteriuria during O99.891; R82.71
[2022-01-11] MEDS: ACETAMINOPHEN 1000 MG/100 ML IV IV PRN (15:50)
[2022-01-11] MEDS ORDERED: HYDROmorphone INJ 0.5 MG/0.5 ML SYR IV STA (21:33)
[2022-01-12] MEDS: ACETAMINOPHEN 1000 MG/100 ML IV IV PRN (00:34)
[2022-01-12] MEDS: HYDROmorphone INJ 0.5 MG/0.5 ML SYR IV PRN (02:41)
[2022-01-12] MEDS: cephALEXin 500 MG CAP PO SCH ×2 (06:07→13:15)
--- NOTE | 2022-01-12 07:28 | Obstetrical Progress Note ---
Date of Service January 12, 2022 Assessment & Plan (1) Hydronephrosis of right kidney: Plan: Patient's pain is better she states this morning it is intermittent but as I speak to her this morning she really has no pain at all I discussed the option of going home and she seems interested in this she would need to continue her suppressive Keflex therapy as she has had multiple UTIs reasonable options for pain control would be Tylenol and Percocet please let us know if you have any concerns we should follow up with her in 1 week Admission and Anticipated Discharge Date Admission Date: January 10, 2022 Results & Data ([facility]) Vital Signs (Past 12 Hours) Vital Signs Temp Pulse Resp BP Pulse Ox 01/11/22 22:41 98.4 F 103 H 18 104/64 96 PG Care Time/CCT Total # of Minutes Spent Total Time Spent with Patient: Total time spent is greater than 50% in coordination of care (as documented) at patient's floor/unit and/or counseling patient: Coding Level of Care Code 89404 Subseq Hosp Care Lvl 2 Diagnoses Hydronephrosis of right kidney N13.30
[2022-01-12] MEDS: SODIUM CHLORIDE 0.9% 1000ML 1,000 ML IV SCH (07:47)
[2022-01-12] MEDS: PRENATAL VITAMIN 1 TAB PO SCH (08:45)
--- NOTE | 2022-01-12 09:21 | Urology Progress Note ---
Date of Service January 12, 2022 Assessment & Plan (1) Left flank pain: Plan: Follow-up left flank pain and mild right hydronephrosis, at 33 week gestation. - Pain is currently improved and tolerable. - Remains afebrile, no new labs today at time of exam. - No intervention warranted at this time. - Continue supportive care, antibiotics, and management per primary service. - Reasonable to d/c when pain is controlled and medically stable. - Recommend pain control and expectant management.Ideally manage symptoms through her and reassess . - If she has persistent pain that cannot be controlled or if she starts to show signs of an obstructed infection, then recommend transfer to a facility with interventional radiology for consideration of percutaneous nephrostomy tubes. - will sign off, please contact us with any further questions or concerns. Admission and Anticipated Discharge Date Admission Date: January 10, 2022 Supervising Physician Co-Signing Physician Notes Discussed patient with CAMRYN. Agree with plan. Subjective Patient seen and examined at bedside this AM. She is awake, alert and sitting up in bed. She is comfortable at present, notes that she is able to sit up without discomfort. No nausea or vomiting. Voiding without difficulty. No fever or chills. Review of Systems Constitutional: as per Subjective / HPI Gastrointestinal: as per Subjective / HPI Genitourinary: as per Subjective / HPI Physical Exam Constitutional: well developed and well nourished; no acute distress and not ill appearing Respiratory: normal respiratory effort; no respiratory distress and no labored breathing Cardiovascular: Extremities: no pedal edema Gastrointestinal (Abdomen): gravid abdomen Musculoskeletal: Head/Neck/Chest: normocephalic Neurologic: moves all extremities and awake Psychiatric: Orientation: alert and oriented x 3 Results & Data ([facility]) Vital Signs (Past 12 Hours) Vital Signs Temp Pulse Resp BP Pulse Ox 01/12/22 07:36 37.2 C 97 H 16 105/67 97 01/11/22 22:41 36.9 C 103 H 18 104/64 96 PG Care Time/CCT Total # of Minutes Spent Total Time Spent with Patient: Total time spent is greater than 50% in coordination of care (as documented) at patient's floor/unit and/or counseling patient: Coding Level of Care Code 37422 Subseq Hosp Care Lvl 2 Diagnoses Left flank pain R10.9
[2022-01-12] MEDS: ONDANSETRON INJ 2 MG/ML 2 ML VIAL IV PRN (11:53)
--- NOTE | 2022-01-12 16:03 | Discharge Summary ---
Date of Service January 12, 2022 Admission HPI Per Admitting Provider Paty Wilks is a 21-year-old at 33 weeks gestation who arrives due to recurrent severe left flank pain. She was admitted to our hospital with similar complaints on 01/08/2022. At that visit, she had a renal ultrasound showing hydronephrosis of the right kidney, but no acute findings on the left. She was evaluated by urology, who considered that she did not require further intervention. Her pain was able to be well controlled throughout her admission, and she was discharged home with as needed Tylenol, and instructed to use moist heat and foam rollers as needed. Additionally, patient had asymptomatic bacteriuria at last visit and was treated initially with ceftriaxone, which was then transitioned to Keflex 500 mg every 6 hours for total 7 days of treatment. Patient states that severe pain returned today around 3 AM. Pain is 10 out of 10, mainly in the left flank and radiates toward the left side of her abdomen at times. She tried Tylenol, heat, ice at home without significant relief. Frances ent has noticed normal movement, no vaginal bleeding or discharge. She denies urinary symptoms at this time, and has not noticed any blood in her urine. Denies fever, chills, nausea, vomiting, chest pain, palpitations, shortness of breath, headache, dizziness, leg swelling, muscle weakness, limb numbness. In the ED, patient had labs showing normal white count, stable anemia with hemoglobin of 10.2, normal platelet count, normal electrolytes, and a UA positive for 3+ blood. Repeat renal ultrasound showed mild fullness within the renal collecting systems without caleb hydronephrosis, may be physiologic secondary to . On-call OB was contacted, and CT of the abdomen was deemed to be acceptable. CT A/P: 1. There is mild fullness within the right renal collecting system. 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 The pelvocaliectasis could related to the patient's . No definite ureteral stones identified. However, the ureters are difficult to follow on this examination. 2. Bilateral nephrolithiasis. 3. No definite bowel wall thickening or obstruction. 4. Normal appendix. In the ED patient received acetaminophen 1000 mg x 1, morphine 6 mg IV x1, NSS 1 L bolus, Zofran 4 mg x 1. Shortly thereafter, patient had pain recurrence and received another 6 mg of IV morphine around 2 hours after initial dose. Upon my evaluation, patient is doubled over in pain on the floor with her mother in the room, stating that she cannot find a comfortable position. She states that the morphine did not help much, if anything a few minutes. Principal Diagnosis 1. Left flank pain? Nephrolithiasis versus round ligament pain 2. Nonobstructing nephrolithiasis Discharge Exam General: Resting comfortably in her hospital bed. She does not appear ill or toxic. NAD. HEENT: Head is AT/NC. Buccal mucosa is moist and pink Neck: No JVD. Negative hepatojugular reflex Cardiac: RRR with 1/6 to 2/6 RAYSHAWN Lungs: CTA without W/R/R Abdomen: uterus above umbilicus. heart tones noted upon auscultation. No CVA tenderness Extremities: No peripheral clubbing cyanosis or edema Neuro: A&O X4. Cranial nerves II through XII are grossly intact. No focal neuro deficits Skin: No obvious skin lesions or rashes Psych: Appropriate affect. Pleasant and cooperative Discharge Data Allergies Allergy/AdvReac Type Severity Reaction Status Date / Time No Known Allergies Allergy Verified 01/10/22 21:48 Consultations 01/10/22 21:06 ED Decision to Admit Stat 01/10/22 21:55 Consult Obstetrics Routine Assessment & Plan 01/12 (1) Hydronephrosis of right kidney: Plan: Patient's pain is better she states this morning it is intermittent but as I speak to her this morning she really has no pain at all I discussed the option of going home and she seems interested in this she would need to continue her suppressive Keflex therapy as she has had multiple UTIs reasonable options for pain control would be Tylenol and Percocet please let us know if you have any concerns we should follow up with her in 1 week Assessment & Plan 01/11 (1) Left flank pain: I suspect she has a utereral stone that is not visualized given the 3+ blood in her urine and evidence of other renal stones on CT scan. and hopefully it has now passed into the bladder. continue IV pain meds as needed and continue to strain all urines we await urology's recommendations continue NST's each shift while admitted (2) Encounter for supervision of normal intrauterine in primigravida, antepartum: 01/11/22 00:59 Consult Urology Routine Assessment & Plan (1) Left flank pain: Plan: Follow-up left flank pain and mild right hydronephrosis, at 33 week gestation. - Pain is currently improved and tolerable. - Remains afebrile, no new labs today at time of exam. - No intervention warranted at this time. - Continue supportive care, antibiotics, and management per primary service. - Reasonable to d/c when pain is controlled and medically stable. - Recommend pain control and expectant management.Ideally manage symptoms through her and reassess . - If she has persistent pain that cannot be controlled or if she starts to show signs of an obstructed infection, then recommend transfer to a facility with interventional radiology for consideration of percutaneous nephrostomy tubes. - will sign off, please contact us with any further questions or concerns. Ordered Studies 01/10/22 16:29 US renal/blad retro comp Stat IMPRESSION: 1. Mild fullness within the renal collecting systems without caleb hydronephrosis. This may be physiologic secondary to the patient's . 2. Stable splenomegaly. 01/10/22 19:05 CT abd pelvis wo con Stat IMPRESSION: 1. There is mild fullness within the right renal collecting system. 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 The pelvocaliectasis could related to the patient's . No definite ureteral stones identified. However, the ureters are difficult to follow on this examination. 2. Bilateral nephrolithiasis. 3. No definite bowel wall thickening or obstruction. 4. Normal appendix. 5. Additional findings as described above. Hospital Course (1) Left flank pain: Patient is a 33w female admitted with recurrent left flank pain - Hospitalized on 320 for left-sided flank pain. Urinalysis was grossly infected during this hospital stay. Ultrasound of the kidneys showedfullness of the right collecting system without evidence of hydronephrosis. She was discharged on Keflex. - Returned on 01/10 with persistent left-sided flank pain. Repeat urinalysis showed 3+ blood but was otherwise not grossly infected - Repeat renal ultrasound showed fullness of the collecting systems likely related to her but no evidence of hydronephrosis seen - CT scan of the A/P: Showing mild fullness of the right renal collecting system with what appears to be a duplicated left renal collecting system. Mild fullness within the left upper pole. Likely related to patient's . Bilateral nonobstructing nephrolithiasis without evidence of hydronephrosis. - Patient receive APAP and diluadid for pain - OB and urology consulted -- appreciate recommendations - In talking with the patient, she seems to have pain only when rolling side to side in the bed. She has no pain otherwise. I highly suspect this may be related to round ligament stretching given her . There was concern for hydronephrosis and recommendations for transfer to's tertiary center for bilateral nephrostomy tubes; however, she has had [address] scan that did note no caleb hydronephrosis. She does have punctate nonobstructing stones but I am not convinced that her pain is related to a kidney stone at this point. - I recommend a support band. In addition, patient would benefit from taking some time off of work. 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 I did reassure her of this. She can continue Tylenol as needed (2) Splenomegaly: Monospot done during previous admission (01/08) which was negative This is also likely related to her (3) Asymptomatic bacteriuria during : Currently on oral Keflex from previous admission, complete course as prescribed (day #4/7) Continues to endorse no dysuria At this point time, patient is medically hemodynamically stable for discharge to home. Follow-up with OB and PCP REturn to the ED for new or worsening symptoms Plan d/w OB and Dr. Pascual Total Time Total Time Spent Total Time Spent (In Minutes): 40 min Discharge Plan Discharge Items Patient Disposition: Home - Self-Care Reason For Visit: RECURRENT, SEVERE LEFT FLANK PAIN Discharge Diagnosis: 1. Left flank pain? Nephrolithiasis versus round ligament pain Activity: As commented below Activity Comment: As below Non-emergency contact: Primary Care Provider and [employer] Call non-emergency contact if: you have any medication questions Follow-up/Referrals: Minal Gardner MD, FACOG [Physician] - 01/16/22 3:15 pm (APPT WITH [facility]AGANDE[facility] DERAS) Nicol Dykes MD [Primary Care Provider] - 01/17/22 10:30 am Diet: Regular Addtl Attending Provider Instructions: You were hospitalized with left-sided flank pain. An ultrasound and CT scan show fullness in the left kidney area; however, no obvious kidney stone seen. This fullness could be related to a stone but could also be related to your . Given the fact that you are having left-sided pain worse when rolling over in bed, I am suspicious that this is likely due to round ligament pain which would be from the expansion of the uterus given your . To help alleviate this discomfort, I am recommending a support belt. This can be found on [facility] and is helpful to support the stress of the baby (especially when you are working long shift and on your feet). In addition, it would be useful to find a chiropractor that has experience in treating patients that are . Would advise going routinely throughout the rest of your to help keep the bones in alignment as much as possible and alleviate any discomfort. In addition, this will help with positioning of the baby throughout the rest of your . Can use Tylenol for pain. Percocet ordered for SEVERE pain but avoid using this if able as this does cross the placenta to the baby Complete the antibiotic prescribed as prior to hospitalization Follow up with your OB in addition to your PCP Return to the ED for new or worsening symptoms Pending Studies at Discharge: No Stand-Alone Forms: My [facility], Work/School Release, Smoking Cessation Medications and DC Order Prescriptions: New oxycodone-acetaminophen [Percocet] 5-325 mg tablet 1 tab PO Q8H PRN (Reason: severe pain) Qty: 12 RF: 0 Continued cephalexin 500 mg capsule 500 mg PO QID RF: 0 PNV cmb#95-ferrous fumarate-FA [] 28 mg iron- 800 mcg Tablet 1 tab PO DAILY RF: 0 Discharge Orders: Discharge Order (Routine); Ordered 01/12/22 Ordered By: Katt Coughlin/Other Patient Handouts: Understanding Kidney Stones Admission Data Admit Date/Time: 01/10/22 21:55 Attending Provider: Sheldon Pascual Admit Provider: Bunny Perez Primary Care Provider: Nicol Dykes Other Providers: Minal Gardner ; Winnie Willson ; Paul Garcia T. Other Interventions: Discharge Summary Assessment (RN) Last Done: 01/12/22 12:39 Coding Level of Care Code D/C DAY MANAGEMENT >30 MINS Diagnoses Left flank pain R10.9 Splenomegaly R16.1 Asymptomatic bacteriuria during O99.891; R82.71
== END 2022-01-12 15:46 | disposition home or self-care (01) ==
LOC: ED 13:43 → INTOOBSV 21:55 → 3N 21:55 → SUATTDRO 21:55 → 3N 01-11 00:15

== ENCOUNTER 2022-03-06 07:41 | Inpatient (IN) ==
[2022-03-06] MEDS ORDERED: OXYTOCIN 30 UNITS/500 ML BAG IV PRN ×3 (07:48→23:57)
[2022-03-06 08:29] LABS: Hematocrit (blood only) 30.6 % (37-47); Hemoglobin 9.7 g/dL (12.0-16.0); Mean Corpuscular Hemoglobin 26.9 pg (25-34); Mean Corpuscular Hgb Conc 31.7 g/dL (32-36); Mean Corpuscular Volume 84.8 fL (80-100); Mean Platelet Volume 9.7 fL (7.4-10.4); Platelet Count 217 K/uL (130-400); RDW Coefficient of Variation 15.8 % (11.5-14.5); RDW Standard Deviation 48.9 fL (36.4-46.3); Red Blood Count 3.61 M/uL (4.2-5.4); White Blood Count 10.14 K/uL (4.8-10.8)
--- NOTE | 2022-03-06 09:03 | History & Physical Report ---
Date of Service March 06, 2022 Assessment & Plan (1) Post term at 41 weeks gestation: Plan: IUP at 41 weeks who presents for IOL with unfavorable cervix cervical balloon placed and pitocin augmentation begun stadol IV and epidural analgesia when requested anticipate vaginal (2) Unfavorable cervix in term : Admission and Anticipated Discharge Date Admission Date: March 06, 2022 History of Present Illness Chief Complaint: INDUCTION OF LABOR Primary Care Provider: Nicol Dykes MD Patient is a 21 yo white female G1PO EDC 02/25/22 who presents for IOL because of post term . otherwise is uncomplicated. GBS -NEGATIVE. Blood type -O positive Baby active. no contractions or SPROM Allergies Allergy/AdvReac Type Severity Reaction Status Date / Time No Known Allergies Allergy Verified 02/27/22 14:25 Home Medications Medication Instructions Recorded Confirmed Type vit no.95-ferrous 1 tab PO DAILY 01/10/22 03/06/22 History fumarate 28 mg-folic acid 800 mcg tablet () ferrous gluconate PO 02/06/22 02/27/22 History Patient History Medical History Acute otitis externa Acute sinusitis Cough Stye Varicella vaccination Viral URI Surgical History H/O tooth extraction and implant History of tonsillectomy Family History Grandmother (Maternal) Ovarian cancer Cervical cancer Denies family history of Prostate cancer Breast cancer Colorectal cancer Social History Smoking Status: Never smoker Second Hand Exposure: No; Do You Dip or Chew Tobacco: No; Hx Alcohol Use: No Hx Substance Use: No Preferred Language: Tajik Communication Ability: Effective Visual Impairment: No Limitations Hearing Ability: Normal 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[employer] Duplicating Unit Required: No Beliefs That Will Affect Care: None marital status: Single marital status details: RODOLFO Ramos (33) [phone] Current Living Situation: Significant Other Current Living Situation Comment: Lives at home with boyfriend current occupational status: employed 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 Feels Safe at Home: Yes Safety Concerns: Feels Safe At This Time Assistive Devices: Apnea Monitor Review of Systems All systems reviewed & are unremarkable except as noted in HPI & below Physical Exam Constitutional: WD/WN, vitals as above Psychiatric: A+Ox3, euthymic affect Genitourinary: OB Exam Abdomen: + vertex, + estimated weight (7-8 pounds) and + irregular contractions Manual OB Exam: + cervical dilation 1 cm, + cervical effacement 70% and + station -1 OB Exam Monitor Tracing: + external FHT monitor used, + external uterine monitor used, + category I and + normal FHT variability cervical balloon placed under direct visualization and 40cc of water instilled into the balloon. the catheter placed on traction and attached to her left thigh. patient tolerated procedure well. Results & Data ([facility]) Vital Signs (Past 12 Hours) Vital Signs Temp Pulse Resp BP 03/06/22 07:54 113 H 128/83 03/06/22 07:49 98.8 F 113 H 18 128/83 Coding Level of Care Code None Diagnoses Post term at 41 weeks gestation O48.0; Z3A.41 Unfavorable cervix in term O34.40 CPT Codes Misx Procedure Codes - 82158 Placement of cervical dilator: 26347 Placement of cervical dilator ([id number])
[2022-03-06] MEDS: LACTATED RINGER'S 1,000 ML IV PRN ×3 (09:08→19:53)
[2022-03-06] MEDS: BUTORPHANOL TARTRATE 1 MG/ML VIAL IV PRN ×3 (09:57→16:25)
[2022-03-06] MEDS ORDERED: ePHEDrine sulfate 50 MG/ML AMP ONE (16:21)
[2022-03-06] MEDS ORDERED: fentaNYL citrate 100 MCG/2 ML VIAL ONE (16:22)
[2022-03-06] MEDS ORDERED: BUPIVACAINE 0.25% 30 ML VIAL ONE ×2 (16:22→20:58)
[2022-03-06] MEDS ORDERED: SODIUM CHLORIDE 0.9% INJ 10 ML VIAL ONE (16:22)
[2022-03-06] MEDS ORDERED: fentaNYL 2MCG/ML ROPIVACAINE 1.25MG/ML 100 ML BAG EPI ONE (16:23)
[2022-03-06] MEDS ORDERED: fentaNYL 2MCG/ML ROPIVACAINE 1.25MG/ML 100 ML BAG EPI PRN (16:45)
[2022-03-06] MEDS ORDERED: NALBUPHINE HCL INJ 10 MG/ML AMP IV PRN (16:45)
[2022-03-06] MEDS ORDERED: diphenhydrAMINE 50 MG/ML VIAL IV PRN (16:45)
[2022-03-06] MEDS ORDERED: ePHEDrine sulfate 50 MG/ML AMP IV PRN (16:45)
[2022-03-06] MEDS ORDERED: ONDANSETRON INJ 2 MG/ML 2 ML VIAL IV PRN (16:45)
[2022-03-06] MEDS ORDERED: NALOXONE HCL 0.4 MG/1 ML VIAL/CARP IV PRN (16:45)
[2022-03-06] MEDS ORDERED: NALOXONE HCL 1 MG in SODIUM CHLORIDE 0.9% 1000ML 1,000 ML IV PRN (16:45)
--- NOTE | 2022-03-06 17:04 | Anesthesiology Consultation ---
Date of Service March 06, 2022 Assessment & Plan (1) Encounter for pre-operative examination: Chart Review Chart Review: Patient NOT seen in Pre Admission Testing and Acceptable Risk for Labor Epidural Consults Requested none History Height/Weight Height: 5 ft 5 in Weight: 88.952 kg Allergies Allergy/AdvReac Type Severity Reaction Status Date / Time No Known Allergies Allergy Verified 02/27/22 14:25 Medications Home Medications Medication Instructions Recorded Confirmed Last Taken vit no.95-ferrous 1 tab PO DAILY 01/10/22 03/06/22 03/05/22 19:00 fumarate 28 mg-folic acid 800 mcg tablet () ferrous gluconate PO 02/06/22 02/27/22 Unknown Active Medications Generic Name Dose Route Start Last Admin Trade Name Freq PRN Reason Stop Dose Admin Butorphanol Tartrate 1 mg 03/06/22 08:49 03/06/22 16:25 Butorphanol Tartrate 1 Mg/Ml Vial IV 04/05/22 08:48 1 mg Q2H PRN Administration Pain Oxytocin 30 units in 500 mls @ 14 mls/hr 03/06/22 07:48 03/06/22 15:50 Pitocin IV 03/08/22 07:47 0.84 units/hr .Q24H PRN 14 mls/hr Labor Induction/Augmentation Titration Protocol 0.84 UNITS/HR Lactated Ringer's 1,000 mls @ 125 mls/hr 03/06/22 07:48 03/06/22 16:27 Lr IV 03/08/22 07:47 125 mls/hr .Q8H PRN Administration L&D Protocol Protocol Past Medical History Medical History Acute otitis externa Acute sinusitis Cough Stye Varicella vaccination Viral URI Exercise / Class Metabolic Activity II 4-5 Yardwork/Stairs/Walk up hill Past Family History Family History Grandmother (Maternal) Ovarian cancer Cervical cancer Denies family history of Prostate cancer Breast cancer Colorectal cancer Past Surgical History Surgical History H/O tooth extraction and implant History of tonsillectomy Past Anesthesia History No Hx of Anesthesia Complications and No Family Hx of Anesthesia Complications History of PONV No Hx of PONV and No Hx of Motion Sickness Social History Smoking Status: Never smoker Do You Dip or Chew Tobacco: No Hx Alcohol Use: No Hx Substance Use: No Physical Exam Vital Signs Last Vital Signs Temp 36.7 C 03/06/22 15:33 Pulse 98 H 03/06/22 17:01 Resp 18 03/06/22 07:49 BP 142/72 H 03/06/22 17:03 Pulse Ox 98 03/06/22 16:59 Testing Laboratory Results 03/06/22 08:14
[2022-03-06] MEDS ORDERED: BENZOCAINE 20% AER SPR 82.5 GM CAN EXT PRN (23:57)
[2022-03-06] MEDS ORDERED: ACETAMINOPHEN 325 MG TAB PO PRN (23:57)
[2022-03-06] MEDS ORDERED: DIPHTHERIA/TETANUS/PERTUSSIS 0.5 ML SYR/VIAL IM ONE (23:57)
[2022-03-06] MEDS ORDERED: HYDROCORTISONE ACETATE 25 MG SUPP PR PRN (23:57)
[2022-03-06] MEDS ORDERED: oxyCODONE/ACETAMINOPHEN 5mg/325mg TAB PO PRN (23:57)
[2022-03-07] MEDS: IBUPROFEN 600 MG TAB PO PRN ×3 (02:03→21:40)
--- NOTE | 2022-03-07 07:30 | Delivery Summary ---
DATE OF SERVICE: 03/06/2022 PROCEDURE: Normal spontaneous vaginal delivery with second-degree perineal laceration repair. SURGEON: Kenyon Godoy MD PREOPERATIVE DIAGNOSES: 1. Single intrauterine at 41 weeks 3 days gestational age. 2. Late term . 3. Rubella equivocal. POSTOPERATIVE DIAGNOSES: 1. Single intrauterine at 41 weeks 3 days gestational age. 2. Late term . 3. Rubella equivocal. 4. Status post procedure. ESTIMATED BLOOD LOSS: 300 mL. DRAINS: None. FLUIDS: Continuous lactated Ringer. URINE OUTPUT: Not measured. COMPLICATIONS: None. FINDINGS: Viable female with weight of 8 pounds 5 ounces and Apgars of 7 and 9 at one and fiv e minutes respectively. INDICATIONS: Paty is a 21-year-old G1, P0, admitted at 41 weeks 3 days gestational age for inductio n of labor for late term . The patient had a cervical ripening Melara placed and was started on oxytocin per regular protocol. The Melara later came out and the patient underwent spontaneous ru pture of membranes. She received an epidural for anesthesia and progressed in labor to complete-comp lete, +2 station, at which time she felt a strong urge to push and pushed for approximately 20-30 min utes to achieve delivery. DESCRIPTION OF PROCEDURE: The patient progressed to 10 cm dilated, 100% effaced, positive 2 station, pushed over intact perineum with epidural anesthesia and delivered a viable female with weigh t and Apgars as noted above. Head of the delivered in SNEHAL position, restituted to right adams sverse. No nuchal cord was noted. Body and shoulders quickly followed. was noted to be vig orous soon after delivery and a 30-second delayed cord clamping was initiated. Cord was then double clamped and cut. was taken over to the awaiting nursery staff for evaluation after delivery and was noted to be vigorous soon after delivery. Cord blood was obtained. Attention was then turne d to delivery of the placenta, which was delivered intact, 3-vessel cord, gentle cord traction. On i nspection of the perineum, vagina, cervix, there was noted to be a second-degree perineal laceration, which was repaired with 3-0 Vicryl in a traditional crown stitch. Needle, sponge and instruments we re correct at the completion of the case. Both mother and were stable in the immediate post- delivery period. Job ID: [id number]
[2022-03-07 08:01] LABS: Hematocrit (blood only) 27.9 % (37-47); Hemoglobin 9.1 g/dL (12.0-16.0)
--- NOTE | 2022-03-07 08:01 | Anesthesia Procedure Note ---
Date of Service March 07, 2022 Anesthesia Post Epidural Note Vital Signs Vital Signs: Temp Pulse Resp BP Pulse Ox 98.2 F 102 H 18 126/88 99 03/07/22 02:30 03/07/22 02:30 03/07/22 02:30 03/07/22 01:52 03/07/22 02:30 Pain Intensity Bilateral Lower Abdomen: Pain Intensity: 5 Notes Mental Status: alert / awake / arousable and participated in evaluation Nausea / Vomiting: adequately controlled Pain: adequately controlled Airway Patency, RR, SpO2: stable & adequate BP & HR: stable & adequate Hydration State: stable & adequate Neuraxial Anesthesia: was administered and sensory block is resolving Anesthetic Complications: no major complications apparent and Pt Satisfied with anesthetic care Epidural: Removed without complications and With tip intact
--- NOTE | 2022-03-07 08:03 | Obstetrical Progress Note ---
Date of Service <Dario Bradshaw DO - Last Filed: 03/07/22 08:05> March 07, 2022 Assessment & Plan <Dario Bradshaw DO - Last Filed: 03/07/22 08:05> (1) Encounter for care and examination after delivery: 21 yo post day 1 from vaginal delivery, doing well. -Continue routine post care. -vital signs reviewed and WNL. (Tmax 36.8) -Blood type O+, GBS Negative, Rubella Immune -Encourage ambulation, monitor and control pain with Motrin, tylenol PRN, resume regular diet, monitor lochia. -encourage breast feeding. <Kenyon Godoy MD - Last Filed: 03/07/22 08:13> (1) Encounter for care and examination after delivery: Subjective <Dario Bradshaw DO - Last Filed: 03/07/22 08:05> Ambulation: ambulating normally Voiding: no voiding problems Passing Gas:: Yes Diet Tolerance:: regular diet Lochia:: Small Feeding Type:: breast feeding Current Pain Level(1-10): 0 Review of Systems Denies fever, chills, sweats Denies shortness of breath, difficulty breathing, chest pain, palpitations, chest pressure. Denies breast pain. Denies dysuria. Denies headache or changes in vision Physical Exam <Dario Bradshaw DO - Last Filed: 03/07/22 08:05> General: Alert, oriented. No acute distress. Cardiac: Regular rate and rhythm, no murmurs/rubs/gallops. Respiratory: Clear to auscultation bilaterally a/p, no wheezes/rales/rhonchi. No increased work of breathing. Symmetrical chest rise. No respiratory distress. Abdomen: Soft, nontender, nondistended. Bowel sounds present. Uterus: Uterine fundus firm, palpable 2 cm below umbilicus. Lower Extremities: No lower extremity edema or swelling. No deep calf pain. Mey's negative bilaterally Results & Data ([facility]) <Dario Bradshaw DO - Last Filed: 03/07/22 08:05> Vital Signs (Past 12 Hours) Vital Signs Temp Pulse Pulse Resp BP Pulse Ox 03/07/22 02:30 36.8 C 102 H 18 99 03/07/22 01:52 102 H 126/88 03/07/22 01:37 103 H 123/86 03/07/22 01:22 117 H 118/78 03/07/22 01:07 115 H 114/78 03/07/22 00:52 103 H 124/83 03/07/22 00:37 115 H 121/79 03/07/22 00:22 106 H 128/81 03/07/22 00:07 122 H 135/77 03/06/22 23:54 115 H 125/69 03/06/22 23:40 109 H 119/69 03/06/22 23:34 111 H 97 03/06/22 23:32 108 H 88 L 03/06/22 23:29 109 H 97 03/06/22 23:26 108 H 123/65 92 03/06/22 23:24 104 H 97 03/06/22 23:20 36.9 C 119 H 91 03/06/22 23:19 112 H 98 03/06/22 23:14 111 H 96 03/06/22 23:11 133 H 110/67 03/06/22 23:09 114 H 96 03/06/22 23:04 129 H 99 03/06/22 22:59 119 H 99 03/06/22 22:56 108 H 111/66 03/06/22 22:54 123 H 99 03/06/22 22:49 106 H 99 03/06/22 22:44 113 H 99 03/06/22 22:41 111 H 140/61 03/06/22 22:39 111 H 99 03/06/22 22:34 113 H 100 03/06/22 22:29 109 H 100 03/06/22 22:24 107 H 100 03/06/22 22:19 132 H 100 03/06/22 22:14 106 H 99 03/06/22 22:09 100 H 100 03/06/22 22:04 89 100 03/06/22 21:59 107 H 100 03/06/22 21:55 98 H 110/74 03/06/22 21:54 109 H 100 03/06/22 21:52 111 H 105/72 03/06/22 21:49 124 H 103/64 100 03/06/22 21:46 108 H 100/67 03/06/22 21:45 37.0 C 18 03/06/22 21:44 97 H 100 03/06/22 21:43 110 H 94/59 L 03/06/22 21:40 115 H 100/68 03/06/22 21:39 119 H 100 03/06/22 21:37 115 H 104/56 L 03/06/22 21:34 116 H 110/62 100 03/06/22 21:31 126 H 102/57 L 03/06/22 21:29 102 H 97 03/06/22 21:28 108 H 99/60 L 03/06/22 21:25 110 H 89/54 L 03/06/22 21:24 105 H 98 03/06/22 21:22 101 H 93/52 L 03/06/22 21:19 112 H 93/61 L 98 03/06/22 21:16 100 H 98/60 L 03/06/22 21:14 101 H 98 03/06/22 21:13 99 H 98/62 L 03/06/22 21:10 101 H 99/61 L 03/06/22 21:09 98 H 99 03/06/22 21:07 93 H 98/58 L 03/06/22 21:04 95 H 105/66 97 03/06/22 21:02 91 H 107/63 93 03/06/22 20:59 98 H 99 03/06/22 20:54 82 98 03/06/22 20:49 87 96 03/06/22 20:47 93 H 107/60 03/06/22 20:44 84 99 03/06/22 20:39 84 99 03/06/22 20:34 82 100 03/06/22 20:32 80 105/63 03/06/22 20:29 84 100 03/06/22 20:24 85 100 03/06/22 20:19 91 H 98 03/06/22 20:18 93 H 113/66 03/06/22 20:14 93 H 100 03/06/22 20:09 92 H 100 03/06/22 20:04 87 100 <Kenyon Godoy MD - Last Filed: 03/07/22 08:13> Co-Signing Physician Notes Patient seen and evaluated and agree with the above findings and plan. Routine care Resident Activity Tracking <Dario Bradshaw DO - Last Filed: 03/07/22 08:05> Resident Involvement: Resident Care Provided Care Provided: OB Delivery
[2022-03-07] MEDS: PRENATAL VITAMIN 1 TAB PO SCH (08:40)
[2022-03-07] MEDS: DOCUSATE SODIUM 100 MG CAP PO SCH (08:41)
[2022-03-07] MEDS: FERROUS SULFATE 325 MG TAB PO SCH (08:41)
[2022-03-07] MEDS ORDERED: bisacodyL 5 MG TABEC PO SCH (20:00)
[2022-03-08] MEDS ORDERED: bisacodyL 10 MG SUPP PR PRN
--- NOTE | 2022-03-08 06:28 | Obstetrical Progress Note ---
Date of Service <Dario Bradshaw DO - Last Filed: 03/08/22 08:11> March 08, 2022 Assessment & Plan <Dario Bradshaw DO - Last Filed: 03/08/22 08:11> (1) Encounter for care and examination after delivery: 21 yo post day 2 from vaginal delivery, doing well. -Continue routine post care. -vital signs reviewed and WNL, heart rate trending down nicely. (Tmax 36.8) -Blood type O+, GBS Negative, Rubella Immune -Encourage ambulation, monitor and control pain with Motrin, tylenol PRN, resume regular diet, monitor lochia. -encourage breast feeding. -Discussed discharge with patient. Patient will follow up with Dr. Godoy in 6 weeks. <Shannan Alamo MD, FACOG - Last Filed: 03/08/22 08:13> (1) Encounter for care and examination after delivery: Subjective <Dario Bradshaw DO - Last Filed: 03/08/22 08:11> Ambulation: ambulating normally Voiding: no voiding problems Passing Gas:: Yes Diet Tolerance:: regular diet Lochia:: Small Feeding Type:: breast feeding Current Pain Level(1-10): 2 (Cramping pain) Review of Systems Denies fever, chills, sweats Denies shortness of breath, difficulty breathing, chest pain, palpitations, chest pressure. Denies breast pain. Denies dysuria. Denies headache or changes in vision Physical Exam <Dario Bradshaw DO - Last Filed: 03/08/22 08:11> General: Alert, oriented. No acute distress. Cardiac: Regular rate and rhythm, no murmurs/rubs/gallops. Respiratory: Clear to auscultation bilaterally a/p, no wheezes/rales/rhonchi. No increased work of breathing. Symmetrical chest rise. No respiratory distress. Abdomen: Soft, nontender, nondistended. Bowel sounds present. Uterus: Uterine fundus firm, palpable 3 cm below umbilicus. Lower Extremities: No lower extremity edema or swelling. No deep calf pain. Mey's negative bilaterally Results & Data ([facility]) <Dario Bradshaw DO - Last Filed: 03/08/22 08:11> Vital Signs (Past 12 Hours) Vital Signs Temp Pulse Resp BP Pulse Ox 03/08/22 00:00 37 C 97 H 18 109/74 97 03/07/22 19:30 36.8 C 105 H 18 107/69 98 <Shannan Alamo MD, FACOG - Last Filed: 03/08/22 08:13> Co-Signing Physician Notes Resident Physician Supervision Note: I interviewed and examined the patient. Discussed with Dr. Muller and agree with findings and plan as documented in the note. Any exceptions or clarifications are listed here: Plan d/c. Instructions reviewed. Call with any concerns. 6 week pp visit planned. Documented By: Shannan Alamo MD, FACOG Resident Activity Tracking <Dario Bradshaw DO - Last Filed: 03/08/22 08:11> Resident Involvement: Resident Care Provided Care Provided: OB Delivery
[2022-03-08] MEDS: IBUPROFEN 600 MG TAB PO PRN (08:58)
[2022-03-08] MEDS: PRENATAL VITAMIN 1 TAB PO SCH (08:58)
[2022-03-08] MEDS: FERROUS SULFATE 325 MG TAB PO SCH (08:58)
[2022-03-08] MEDS: DOCUSATE SODIUM 100 MG CAP PO SCH (08:58)
== END 2022-03-08 16:35 | disposition home or self-care (01) | DRG 807 ==
LOC: 4S1 07:41 → 4E2 03-07 02:30